=== PATIENT | male | born 1960 | race Caucasian/White ===

== ENCOUNTER 2016-07-28 18:50 | Emergency (ER) | payer BC ==
[2016-07-28 19:23] VITALS: BP 142/65
[2016-07-28] MEDS ORDERED: Ketorolac 30 MG/ML SDV ONE ×2 (19:53→20:01)
[2016-07-28] MEDS ORDERED: Meperidine PF 25 MG/ML Syringe IM ONE (19:55)
--- NOTE | 2016-07-28 21:37 | EDM.PDOC ---
ED HPI HEADACHE COMPLAINT - General Chief Complaint: Headache Stated Complaint: HEADACHE Time Seen by Provider: 07/28/16 19:10 Source of Information: Reports: Patient History Limitations: Reports: No limitations - History of Present Illness INITIAL COMMENTS - FREE TEXT/NARRATIVE: 85-year-old male presents to the emergency room with complaints of headache unilateral right side that occurred about 3:00 this afternoon. He reports his pain is constant and that rates it at a 5/10. Systemic to other headaches he's had in the past. He averages at least 2 headaches a month. He denies any numbness complaints in his arms face or lower chest remedies. He denies any visual changes. He denies any difficulty with speech. He denies any gait disturbance. He took 3 325 mg aspirin without relief. Symptom Onset Date: 07/28/16 Symptom Onset Time: 15:00 Timing/Duration: Reports: hour(s):, constant/continuous Location: Reports: parietal, right Quality: Denies: pounding Severity: Reports: moderate, similar to past headaches Context: Denies: dietary trigger, recent drugs/ETOH, change in medications Treatments [employer]: Reports: Aspirin - Related Data Allergies/ADRs: Allergies Allergy/AdvReac Type Severity Reaction Status Date / Time No Known Drug Allergies Allergy Other Verified 07/28/16 19:23 Home Meds: Home Meds Fluticasone Propionate [Flovent HFA 44 MCG] 1 puff INH BID PRN 01/14/16 [History ] Past Medical History - Past Health History Medical/Surgical History: Denies Medical/Surgical History HEENT History: Reports: Hard of hearing, Impaired vision, Other (see below) Other HEENT History: Right-sided chronic hearing loss secondary to previous otitis media or infection, patient wears glasses Cardiovascular History: Reports: None Respiratory History: Reports: COPD Gastrointestinal History: Reports: Colon polyp, Other (see below) Other Gastrointestinal History: Multiple polypectomies of unknown type as below Genitourinary History: Reports: None Musculoskeletal History: Reports: Arthritis, Back pain, chronic, Fracture, Osteoarthritis, Other (see below) Other Musculoskeletal History: Right ankle fracture in 1989, spina bifida occulta in L5-S1 region Neurological History: Reports: Headaches, chronic, Other (see below) Other Neuro History: Chronic tension headaches which occur about every 3 months with previous negative CT scan of the head Psychiatric History: Reports: None Endocrine/Metabolic History: Reports: None Hematologic History: Reports: None Immunologic History: Reports: None Oncologic (Cancer) History: Reports: None Dermatologic History: Reports: None - Infectious Disease History Infectious Disease History: Reports: None. Denies: C-difficile, Chicken pox, Measles, Meningitis, Mononucleosis, MRSA, Mumps, Pertussis (whooping cough), Rheumatic Fever, Rubella, Scarlet fever, Shingles, TB, VRE - Past Surgical History Head Surgeries/Procedures: Reports: None HEENT Surgical History: Reports: Adenoidectomy, Oral surgery, Tonsillectomy, Other (see below) Other HEENT Surgeries/Procedures: Total teeth extraction, tonsillectomy and adenoidectomy as a child Cardiovascular Surgical History: Reports: None Respiratory Surgical History: Reports: None GI Surgical History: Reports: Appendectomy, Colonoscopy, Polypectomy, Other ( see below) Other GI Surgeries/Procedures: Colonoscopy in January 2016 with polypectomy x5 Male Surgical History: Reports: None Endocrine Surgical History: Reports: None Neurological Surgical History: Reports: None Musculoskeletal Surgical History: Reports: None Oncologic Surgical History: Reports: None Dermatological Surgical History: Reports: None - Past Imaging History Past Imaging History: Reports: CAT scan (CT of the head on 02/08/16, CT of the abdomen and pelvis on 02/16/16) Social & Family History - Family History Family Medical History: Noncontributory - Tobacco Use Smoking Status *Q: Former Smoker Years of Tobacco use: 42 Packs/Tins Daily: 2 Used Tobacco, but Quit: Yes Month Tobacco Last Used: Stop smoking in November 2015 Second Hand Smoke Exposure: No - Caffeine Use Caffeine Use: Reports: Coffee, Soda - Alcohol Use Days Per Week of Alcohol Use: 0 - Recreational Drug Use Recreational Drug Use: No Drug Use in Last 12 Months: No - Living Situation & Occupation Living situation: Reports: (1995 3 children from that relationship, another child from subsequent significant other), alone Occupation: employed (grain elevator) ED ROS GENERAL - Review of Systems Review Of Systems: ROS reveals no pertinent complaints other than HPI. - Physical Exam Exam: See Below Exam Limited By: No limitations General Appearance: alert, WD/WN, mild distress Eye Exam: bilateral eye: EOMI, PERRL Ears: normal external exam, normal canal, hearing grossly normal, normal TMs Nose: normal inspection Throat/Mouth: Normal inspection, Normal lips, Normal oropharynx, Normal voice, No airway compromise Head Exam: atraumatic, normocephalic Neck: normal inspection, supple, non-tender, full range of motion. No: carotid bruit, lymphadenopathy (L), lymphadenopathy (R), tender midline, thyromegaly Respiratory/Chest: no respiratory distress, lungs clear, normal breath sounds, no accessory muscle use, chest non-tender Cardiovascular: normal peripheral pulses, regular rate, rhythm, no edema, no murmur Neuro Exam (Abbreviated): alert, oriented, CN II-XII intact, normal cognition, normal gait, no motor/sensory deficits Course - Vital Signs Last Recorded V/S: Last Vital Signs Temp 97.2 F 07/28/16 19:22 Pulse 68 07/28/16 19:22 Resp 20 07/28/16 19:22 BP 142/65 H 07/28/16 19:22 Pulse Ox 96 07/28/16 19:22 - Orders/Labs/Meds Meds: Medications Discontinued Medications Generic Name Dose Route Start Last Admin Trade Name Chel PRN Reason Stop Dose Admin Ketorolac Tromethamine 30 mg 07/28/16 19:53 Toradol .ROUTE 07/28/16 19:54 .STK-MED ONE Ketorolac Tromethamine Confirm 07/28/16 20:01 07/28/16 20:06 Toradol Administered 07/28/16 20:02 30 mg Dose Administration 30 mg .ROUTE .STK-MED ONE Meperidine HCl 25 mg 07/28/16 19:55 07/28/16 20:32 Demerol IM 07/28/16 19:56 25 mg ONETIME ONE Administration - Re-Assessments/Exams Free Text/Narrative Re-Assessment/Exam: 07/28/16 22:23 Pain upon arrival was a 5/10. Patient reports pain is now one or 2/10. Feels significantly better. Departure - Departure Time of Disposition: 23:00 Disposition: Home, Self-Care 01 Condition: good Clinical Impression: Headache Qualifiers: Headache type: tension-type Headache chronicity pattern: acute headache Intractability: not intractable Qualified Code(s): G44.209 - Tension-type headache, unspecified, not intractable Instructions: Tension Headache Referrals: Idalia Cuellar MD [Primary Care Provider] - Forms: ED Department Discharge Additional Instructions: 1. Rest 2. Tylenol 500-1000mg every 8 hours as needed. 3. Ibuprofen 800 mg every 8 hours as needed. 4. return to the emergency room if he had recurrence of severe in retractable headache pain, intractable vomiting, visual changes, change in speech or drooping of the face or weakness of her extremities or difficulty walking. - Assessment/Plan Assessment:: headache, tension Plan: 1. Rest 2. Tylenol or ibuprofen for headache Q8 hours as needed 3. Return to ER if any neurologic changes such as visual changes, speech changes , difficulty with talking, drooping of the face, weakness of the upper or lower extremities, gait disturbance.
[2016-07-31] MEDS ORDERED: Ketorolac 30 MG/ML SDV IM ONE (10:01)
== END 2016-07-28 22:35 | disposition home or self-care (01) ==
LOC: KA.ED 18:50
DX: G44.209 Tension-type headache, unspecified, not intractable (principal); J44.9 Chronic obstructive pulmonary disease, unspecified; Z87.891 Personal history of nicotine dependence
CPT/HCPCS: 96372; 99283; J1885; J2175

== ENCOUNTER 2016-12-15 05:53 | Emergency (ER) | payer BC, OTHER, SELFPAY ==
[2016-12-15 06:23] VITALS: BP 164/85
[2016-12-15] MEDS ORDERED: Albuterol 0.083% 2.5 MG/3 ML Neb Soln ONE (06:39)
[2016-12-15] MEDS ORDERED: Albuterol 0.083% 2.5 MG/3 ML Neb Soln NEB ONE (06:40)
[2016-12-15] MEDS ORDERED: Albuterol/Ipratropium 3.0-0.5 MG/3 ML Neb Soln NEB ONE (06:42)
--- NOTE | 2016-12-15 07:05 | EDM.PDOC ---
ED HPI GENERAL MEDICAL PROBLEM - General Chief Complaint: Respiratory Problem Stated Complaint: cough Time Seen by Provider: 12/15/16 06:00 Source of Information: Reports: Patient History Limitations: Reports: No Limitations - History of Present Illness INITIAL COMMENTS - FREE TEXT/NARRATIVE: 55 YO WM presents to ER complaining of cough and shortness of breath x 1 day. Pt states he woke tonight coughing with clear mucus production. Pt denies any fever/chills, chest pain, nausea/vomiting. Onset: Today Duration: Day(s): (1) Location: Reports: Chest Severity: Mild Worsens with: Reports: Breathing Associated Symptoms: Reports: Cough, Shortness of Breath - Related Data Allergies Allergy/AdvReac Type Severity Reaction Status Date / Time No Known Drug Allergies Allergy Other Verified 12/15/16 06:24 Home Meds: Home Meds Fluticasone Propionate [Flovent HFA 44 MCG] 1 puff INH BID PRN 01/14/16 [History ] Albuterol Sulfate [Proair Hfa] 8.5 gm IH Q4HR #1 hfa.aer.ad 12/15/16 [Rx] Past Medical History - Past Health History Medical/Surgical History: Denies Medical/Surgical History HEENT History: Reports: Hard of Hearing, Impaired Vision Other HEENT History: Right-sided chronic hearing loss secondary to previous otitis media or infection, patient wears glasses Cardiovascular History: Reports: None Respiratory History: Reports: COPD Gastrointestinal History: Reports: Colon Polyp Other Gastrointestinal History: Multiple polypectomies of unknown type as below Genitourinary History: Reports: None Musculoskeletal History: Reports: Arthritis, Back Pain, Chronic, Fracture, Osteoarthritis, Other (See Below) Other Musculoskeletal History: Right ankle fracture in 1989, spina bifida occulta in L5-S1 region Neurological History: Reports: Headaches, Chronic Other Neuro History: Chronic tension headaches which occur about every 3 months with previous negative CT scan of the head Psychiatric History: Reports: None Endocrine/Metabolic History: Reports: None Hematologic History: Reports: None Immunologic History: Reports: None Oncologic (Cancer) History: Reports: None Dermatologic History: Reports: None - Infectious Disease History Infectious Disease History: Reports: None - Past Surgical History Head Surgeries/Procedures: Reports: None HEENT Surgical History: Reports: Adenoidectomy, Oral Surgery, Tonsillectomy, Other (See Below) Cardiovascular Surgical History: Reports: None Respiratory Surgical History: Reports: None GI Surgical History: Reports: Appendectomy, Colonoscopy, Polypectomy Male Surgical History: Reports: None Endocrine Surgical History: Reports: None Oncologic Surgical History: Reports: None Dermatological Surgical History: Reports: None - Past Imaging History Past Imaging History: Reports: CAT Scan Social & Family History - Family History Family Medical History: Noncontributory - Tobacco Use Smoking Status *Q: Former Smoker Years of Tobacco use: 42 Packs/Tins Daily: 2 Used Tobacco, but Quit: Yes Month Tobacco Last Used: Stop smoking in November 2015 Second Hand Smoke Exposure: No - Caffeine Use Caffeine Use: Reports: Coffee, Soda - Alcohol Use Days Per Week of Alcohol Use: 0 - Recreational Drug Use Recreational Drug Use: No Drug Use in Last 12 Months: No - Living Situation & Occupation Living situation: Reports: , Alone Occupation: Employed ED ROS GENERAL - Review of Systems Review Of Systems: See Below Constitutional: Reports: No Symptoms HEENT: Reports: No Symptoms Respiratory: Reports: Shortness of Breath Cardiovascular: Reports: No Symptoms Endocrine: Reports: No Symptoms GI/Abdominal: Reports: No Symptoms : Reports: No Symptoms Musculoskeletal: Reports: No Symptoms Skin: Reports: No Symptoms Neurological: Reports: No Symptoms Psychiatric: Reports: No Symptoms Hematologic/Lymphatic: Reports: No Symptoms Immunologic: Reports: No Symptoms ED EXAM, GENERAL - Physical Exam Exam: See Below Exam Limited By: No Limitations General Appearance: Alert, WD/WN, No Apparent Distress Ears: Normal External Exam, Normal Canal, Hearing Grossly Normal, Normal TMs Nose: Normal Inspection, Normal Mucosa, No Blood Throat/Mouth: Normal Inspection, Normal Lips, Normal Teeth, Normal Gums, Normal Oropharynx, Normal Voice, No Airway Compromise Head: Atraumatic, Normocephalic Neck: Normal Inspection, Supple, Non-Tender, Full Range of Motion Respiratory/Chest: No Respiratory Distress, Normal Breath Sounds, No Accessory Muscle Use, Chest Non-Tender, Wheezing Cardiovascular: Normal Peripheral Pulses, Regular Rate, Rhythm, No Edema, No Gallop, No JVD, No Murmur, No Rub GI/Abdominal: Normal Bowel Sounds, Soft, Non-Tender, No Organomegaly, No Distention, No Abnormal Bruit, No Mass Back Exam: Normal Inspection, Full Range of Motion, NT Extremities: Normal Inspection, Normal Range of Motion, Non-Tender, Normal Capillary Refill, No Pedal Edema Neurological: Alert, Oriented, CN II-XII Intact, Normal Cognition, Normal Gait, Normal Reflexes, No Motor/Sensory Deficits Psychiatric: Normal Affect, Normal Mood Skin Exam: Warm, Dry, Intact, Normal Color, No Rash Lymphatic: No Adenopathy Course - Vital Signs Last Recorded V/S: Last Vital Signs Temp 35.9 C 12/15/16 06:20 Pulse 68 12/15/16 06:42 Resp 16 12/15/16 06:20 BP 164/85 H 12/15/16 06:20 Pulse Ox 97 12/15/16 06:20 - Orders/Labs/Meds Orders: Active Orders 24 hr Category Date Time Status RT Aerosol Therapy [RC] ASDIRECTED Care 12/15/16 06:42 Active RT Aerosol Therapy [RC] ASDIRECTED Care 12/15/16 06:49 Active Meds: Medications Discontinued Medications Generic Name Dose Route Start Last Admin Trade Name Freq PRN Reason Stop Dose Admin Albuterol Confirm 12/15/16 06:39 12/15/16 06:51 Proventil Neb Soln Administered 12/15/16 06:40 Not Given Dose 2.5 mg .ROUTE .STK-MED ONE Albuterol 2.5 mg 12/15/16 06:40 12/15/16 06:51 Proventil Neb Soln NEB 12/15/16 06:41 2.5 mg ONETIME ONE Administration Departure - Departure Time of Disposition: 07:05 Disposition: Home, Self-Care 01 Condition: Good Clinical Impression: Asthma attack - Discharge Information Prescriptions: Albuterol Sulfate [Proair Hfa] 8.5 gm IH Q4HR #1 hfa.aer.ad Instructions: Asthma, Adult - My Orders Last 24 Hours: My Active Orders 12/15/16 06:42 RT Aerosol Therapy [RC] ASDIRECTED 12/15/16 06:49 RT Aerosol Therapy [RC] ASDIRECTED - Assessment/Plan Last 24 Hours: My Active Orders 12/15/16 06:42 RT Aerosol Therapy [RC] ASDIRECTED 12/15/16 06:49 RT Aerosol Therapy [RC] ASDIRECTED Assessment:: 1. bronchospasm Plan: 1. albuterol MDI Q4 and prn 2. discharge home 3. follow up at clinic for further evaluation and treatment
== END 2016-12-15 07:15 | disposition home or self-care (01) ==
LOC: KA.ED 05:53
DX: J45.909 Unspecified asthma, uncomplicated (principal); M19.90 Unspecified osteoarthritis, unspecified site; Z90.89 Acquired absence of other organs; Z87.891 Personal history of nicotine dependence
CPT/HCPCS: 94640; 99284; J7620

== ENCOUNTER 2017-03-27 09:47 | Emergency (ER) | payer BC, OTHER ==
--- NOTE | 2017-03-27 10:20 | EDM.PDOC ---
ED HPI GENERAL MEDICAL PROBLEM - General Chief Complaint: General Stated Complaint: CHEST PAIN Time Seen by Provider: 03/27/17 10:09 Source of Information: Reports: Patient History Limitations: Reports: No Limitations - History of Present Illness INITIAL COMMENTS - FREE TEXT/NARRATIVE: Patient is a 56-year-old gentleman who presents to the emergency department with a complaint of slurred speech and left upper extremity numbness and tingling. Patient states that he was on break from work and developed difficulty speaking and left upper extremity numbness and tingling. He is brought to emergency department by his employer. At that time. He denied chest pain, headache, blurry vision, shortness of breath, nausea, vomiting, or dizziness. Patient does not usually, nor did he take any anti-inflammatory medicines this morning. Upon presentation, symptoms had completely resolved. However, while in ER he developed difficulty speaking again for approximately 2 minutes, then spontaneously resolved. He denied any headache, chest pain, shortness of breath, fever, or left upper extremity numbness during this episode. Concerns discussed with patient's brother, who states that patient has had several several similar episodes over the last 2 weeks. At times he slurs his words, becomes confused, and then this resolves spontaneously. States that this typically lasts about 5 minutes and has been trying to get patient to be evaluated by medical provider. However, patient had refused. When confronted with this information, patient did concur and said this has been going on for a couple weeks. Onset: Today Onset Date: 03/27/17 Onset Time: 09:30 Duration: Minutes: Severity: Mild Improves with: Reports: None, Other (Spontaneously) Worsens with: Reports: None Associated Symptoms: Reports: Other (Left arm numbness/tingling) - Related Data Allergies Allergy/AdvReac Type Severity Reaction Status Date / Time No Known Drug Allergies Allergy Other Verified 03/27/17 10:27 Home Meds: Home Meds Albuterol [Ventolin HFA] 2 puff INH Q4H PRN 03/27/17 [History] Past Medical History - Past Health History Medical/Surgical History: Denies Medical/Surgical History HEENT History: Reports: Hard of Hearing, Impaired Vision Other HEENT History: Right-sided chronic hearing loss secondary to previous otitis media or infection, patient wears glasses Cardiovascular History: Reports: None Respiratory History: Reports: COPD Gastrointestinal History: Reports: Colon Polyp Other Gastrointestinal History: Multiple polypectomies of unknown type as below Genitourinary History: Reports: None Musculoskeletal History: Reports: Arthritis, Back Pain, Chronic, Fracture, Osteoarthritis, Other (See Below) Other Musculoskeletal History: Right ankle fracture in 1989, spina bifida occulta in L5-S1 region Neurological History: Reports: Headaches, Chronic Other Neuro History: Chronic tension headaches which occur about every 3 months with previous negative CT scan of the head Psychiatric History: Reports: None Endocrine/Metabolic History: Reports: None Hematologic History: Reports: None Immunologic History: Reports: None Oncologic (Cancer) History: Reports: None Dermatologic History: Reports: None - Infectious Disease History Infectious Disease History: Reports: None - Past Surgical History Head Surgeries/Procedures: Reports: None HEENT Surgical History: Reports: Adenoidectomy, Oral Surgery, Tonsillectomy, Other (See Below) Cardiovascular Surgical History: Reports: None Respiratory Surgical History: Reports: None GI Surgical History: Reports: Appendectomy, Colonoscopy, Polypectomy Male Surgical History: Reports: None Endocrine Surgical History: Reports: None Oncologic Surgical History: Reports: None Dermatological Surgical History: Reports: None - Past Imaging History Past Imaging History: Reports: CAT Scan Social & Family History - Family History Family Medical History: Noncontributory - Tobacco Use Smoking Status *Q: Former Smoker Years of Tobacco use: 42 Packs/Tins Daily: 2 Used Tobacco, but Quit: Yes Month Tobacco Last Used: Stop smoking in November 2015 Second Hand Smoke Exposure: No - Caffeine Use Caffeine Use: Reports: Coffee, Soda - Alcohol Use Days Per Week of Alcohol Use: 0 - Recreational Drug Use Recreational Drug Use: No Drug Use in Last 12 Months: No - Living Situation & Occupation Living situation: Reports: , Alone Occupation: Employed ED ROS GENERAL - Review of Systems Review Of Systems: ROS reveals no pertinent complaints other than HPI. Constitutional: Reports: No Symptoms HEENT: Reports: No Symptoms Respiratory: Reports: No Symptoms Cardiovascular: Reports: No Symptoms Endocrine: Reports: No Symptoms GI/Abdominal: Reports: No Symptoms : Reports: No Symptoms Musculoskeletal: Reports: Arm Pain Skin: Reports: No Symptoms Neurological: Reports: Confusion, Numbness, Trouble Speaking, Change in Speech Psychiatric: Reports: No Symptoms Hematologic/Lymphatic: Reports: No Symptoms Immunologic: Reports: No Symptoms ED EXAM, GENERAL - Physical Exam Exam: See Below Exam Limited By: No Limitations General Appearance: Alert, WD/WN, No Apparent Distress Eye Exam: Bilateral Eye: Normal Inspection Ears: Normal External Exam, Normal Canal, Normal TMs Nose: Normal Inspection, Normal Mucosa, No Blood Throat/Mouth: Normal Inspection, Normal Oropharynx, No Airway Compromise Head: Atraumatic, Normocephalic Neck: Normal Inspection, Supple, Non-Tender Respiratory/Chest: No Respiratory Distress, Lungs Clear, Normal Breath Sounds, No Accessory Muscle Use, Chest Non-Tender Cardiovascular: Regular Rate, Rhythm, No Murmur GI/Abdominal: Normal Bowel Sounds, Soft, Non-Tender, No Organomegaly, No Distention, No Abnormal Bruit, No Mass Back Exam: Normal Inspection. No: CVA Tenderness (L), CVA Tenderness (R) Extremities: Normal Inspection, No Pedal Edema Neurological: Alert, Oriented, CN II-XII Intact, Normal Cognition, No Motor/ Sensory Deficits Psychiatric: Normal Affect, Normal Mood Skin Exam: Warm, Dry, Intact, Normal Color, No Rash Lymphatic: No Adenopathy EKG INTERPRETATION EKG Date: 03/27/17 Time: 10:50 Rhythm: NSR Rate (Beats/Min): 69 [place]: Normal P-Wave: Present QRS: Normal ST-T: Normal QT: Normal Comparison: NA - No Prior EKG Course - Vital Signs Last Recorded V/S: Last Vital Signs Temp 98.6 F 03/27/17 10:10 Pulse 75 03/27/17 10:15 Resp 20 03/27/17 10:10 BP 140/64 03/27/17 10:15 Pulse Ox 98 03/27/17 10:10 - Orders/Labs/Meds Orders: Active Orders 24 hr Category Date Time Status EKG Documentation Completion [RC] ASDIRECTED Care 03/27/17 09:52 Active Chest 1V Frontal [CR] Stat Exams 03/27/17 09:52 Ordered Head wo Cont [CT] Stat Exams 03/27/17 10:10 Ordered EKG 12 Lead [EK] Routine Ther 03/27/17 09:51 Ordered Labs: Laboratory Tests 03/27/17 03/27/17 Range/Units 09:50 09:50 WBC 7.3 (5.0-10.0) 10^3/uL RBC 5.26 (4.50-6.00) 10^6/uL Hgb 15.8 (13.0-17.0) g/dL Hct 48.1 (40.0-52.0) % MCV 91.5 (82.0-92.0) fL MCH 30.1 (27.0-31.0) pg MCHC 32.9 (32.0-36.0) g/dL RDW 11.8 (11.5-14.5) % Plt Count 277 (150-300) 10^3/uL MPV 7.8 (7.4-10.4) fL Neut % (Auto) 65.1 (50.0-70.0) % Lymph % (Auto) 27.5 (20.0-40.0) % [place] % (Auto) 5.6 (2.0-8.0) % Eos % (Auto) 1.8 (1.0-3.0) % Baso % (Auto) 0.0 (0.0-1.0) % Neut # (Auto) 4.8 (2.5-7.0) 10^3/uL Lymph # (Auto) 2.0 (1.0-4.0) 10^3/uL [place] # (Auto) 0.4 (0.1-0.8) 10^3/uL Eos # (Auto) 0.1 (0.1-0.3) 10^3/uL Baso # (Auto) 0.0 (0.0-0.1) 10^3/uL Sodium 140 (136-145) mmol/L Potassium 4.1 (3.3-5.3) mmol/L Chloride 103 (98-115) mmol/L Carbon Dioxide 28.9 (21.0-32.0) mmol/L BUN 15 (6-25) mg/dL Creatinine 0.95 (0.51-1.17) mg/dL Est Cr Clr Drug Dosing TNP Estimated GFR (MDRD) > 60 mL/min Glucose 122 H (70-110) mg/dL Calcium 8.4 L (8.7-10.3) mg/dL Total Bilirubin 0.5 (0.2-1.0) mg/dL AST 17 (15-37) U/L ALT 11 L (12-78) U/L Alkaline Phosphatase 157 H (46-116) IU/L Troponin I < 0.04 (0.00-0.070) ng/mL Total Protein 7.7 (6.4-8.2) g/dL Albumin 4.11 (3.00-4.80) g/dL - Radiology Interpretation Free Text/Narrative:: Chest x-ray negative for acute process. CT Results Date: 03/27/17 - Re-Assessments/Exams Free Text/Narrative Re-Assessment/Exam: 03/27/17 11:26 Patient afebrile, nontoxic appearing, vital signs stable, asymptomatic. Discussed case in depth with Dr. Major, she feels it would be propria to discharge from ER today, and have patient follow-up at clinic for further studies. Departure - Departure Time of Disposition: 11:27 Disposition: Home, Self-Care 01 Condition: Good Clinical Impression: Aphasia Transient ischemic attack Qualifiers: Transient cerebral ischemia type: unspecified Qualified Code(s): G45.9 - Transient cerebral ischemic attack, unspecified - Discharge Information Instructions: Aphasia, Transient Ischemic Attack, [id number] Referrals: PCP,Unknown [Ordering Only Provider] - Forms: ED Department Discharge Additional Instructions: Follow-up with Dr. Major in the next 1-2 days. Return to emergency department sooner if symptoms continue or worsen. - My Orders Last 24 Hours: My Active Orders 03/27/17 09:51 EKG 12 Lead [EK] Routine 03/27/17 09:52 EKG Documentation Completion [RC] ASDIRECTED Chest 1V Frontal [CR] Stat 03/27/17 10:10 Head wo Cont [CT] Stat - Assessment/Plan Last 24 Hours: My Active Orders 03/27/17 09:51 EKG 12 Lead [EK] Routine 03/27/17 09:52 EKG Documentation Completion [RC] ASDIRECTED Chest 1V Frontal [CR] Stat 03/27/17 10:10 Head wo Cont [CT] Stat Assessment:: Aphasia Plan: Follow-up with Dr. Major
[2017-03-27 10:23] LABS: CHLORIDE,CL 103 mmol/L (98-115); SODIUM,NA 140 mmol/L (136-145)
[2017-03-27 11:33] VITALS: BP 148/67
== END 2017-03-27 11:40 | disposition home or self-care (01) ==
LOC: KA.ED 09:47
DX: G45.9 Transient cerebral ischemic attack, unspecified (principal); J44.9 Chronic obstructive pulmonary disease, unspecified; Z87.891 Personal history of nicotine dependence
CPT/HCPCS: 36415; 70450; 71045; 80053; 84484; 85025; 93005; 99285

== ENCOUNTER 2017-03-28 14:05 | Emergency (ER) | payer BC, OTHER ==
[2017-03-28 14:25] VITALS: BP 151/76
--- NOTE | 2017-03-28 14:39 | EDM.PDOC ---
ED HPI GENERAL MEDICAL PROBLEM - General Chief Complaint: General Stated Complaint: SLURRED SPEECH Time Seen by Provider: 03/28/17 14:14 Source of Information: Reports: Patient, Family (brother) History Limitations: Reports: No Limitations - History of Present Illness INITIAL COMMENTS - FREE TEXT/NARRATIVE: PATIENT IS A 56-YEAR-OLD GENTLEMAN WHO PRESENT TO THE EMERGENCY DEPARTMENT THIS AFTERNOON WITH HIS BROTHER FOR A CONTINUED COMPLAINT OF SLURRED SPEECH AND CONFUSION WHICH IS BEEN GOING ON FOR SEVERAL WEEKS. PATIENT PRESENTED TO THE EMERGENCY DEPARTMENT YESTERDAY WITH SAME COMPLAINT. AT THAT TIME ALL LAB WORK , EKG, CHEST X-RAY AND CT HEAD WERE ALL NEGATIVE. HIS PRIMARY CARE PHYSICIAN WAS CONTACTED AND RECOMMENDED FOLLOW-UP IN THE OFFICE FOR MRI AND FURTHER EVALUATION. BROTHER STATES THAT HE FEELS SYMPTOMS ARE WORSENING AND BECOMING MORE FREQUENT, SO THEY DECIDED TO PRESENT TO THE ER. PATIENT DENIES HEADACHE, CHEST PAIN, SHORTNESS OF BREATH, NAUSEA, VOMITING, DIARRHEA, ANY TRAUMA, BLURRY VISION, OR DIZZINESS. PATIENT STATES THAT HE HAS DIFFICULTY GETTING WORDS OUT, AND FEELS VERY CONFUSED. Onset: Gradual Duration: Week(s): Quality: Reports: Other (NO HEADACHE, NO CHEST PAIN) Severity: Mild Improves with: Reports: None Worsens with: Reports: None Associated Symptoms: Reports: No Other Symptoms - Related Data Allergies Allergy/AdvReac Type Severity Reaction Status Date / Time No Known Drug Allergies Allergy Other Verified 03/28/17 14:15 Home Meds: Home Meds Albuterol [Ventolin HFA] 2 puff INH Q4H PRN 03/27/17 [History] Past Medical History - Past Health History Medical/Surgical History: Denies Medical/Surgical History HEENT History: Reports: Hard of Hearing, Impaired Vision Other HEENT History: Right-sided chronic hearing loss secondary to previous otitis media or infection, patient wears glasses Cardiovascular History: Reports: None Respiratory History: Reports: COPD Gastrointestinal History: Reports: Colon Polyp Other Gastrointestinal History: Multiple polypectomies of unknown type as below Genitourinary History: Reports: None Musculoskeletal History: Reports: Arthritis, Back Pain, Chronic, Fracture, Osteoarthritis, Other (See Below) Other Musculoskeletal History: Right ankle fracture in 1989, spina bifida occulta in L5-S1 region Neurological History: Reports: Headaches, Chronic Other Neuro History: Chronic tension headaches which occur about every [address] months with previous negative CT scan of the head Psychiatric History: Reports: None Endocrine/Metabolic History: Reports: None Hematologic History: Reports: None Immunologic History: Reports: None Oncologic (Cancer) History: Reports: None Dermatologic History: Reports: None - Infectious Disease History Infectious Disease History: Reports: None Other Infectious Disease History: does not think that he did. - Past Surgical History Head Surgeries/Procedures: Reports: None HEENT Surgical History: Reports: Adenoidectomy, Oral Surgery, Tonsillectomy, Other (See Below) Cardiovascular Surgical History: Reports: None Respiratory Surgical History: Reports: None GI Surgical History: Reports: Appendectomy, Colonoscopy, Polypectomy Male Surgical History: Reports: None Endocrine Surgical History: Reports: None Oncologic Surgical History: Reports: None Dermatological Surgical History: Reports: None - Past Imaging History Past Imaging History: Reports: CAT Scan Social & Family History - Family History Family Medical History: Noncontributory Cardiac: Reports: Bypass Endocrine/Metabolic: Reports: IDDM - Tobacco Use Smoking Status *Q: Former Smoker Years of Tobacco use: 42 Packs/Tins Daily: 2 Used Tobacco, but Quit: Yes Month Tobacco Last Used: 2016 Second Hand Smoke Exposure: No - Caffeine Use Caffeine Use: Reports: Coffee, Soda - Alcohol Use Days Per Week of Alcohol Use: 0 - Recreational Drug Use Recreational Drug Use: No Drug Use in Last 12 Months: No - Living Situation & Occupation Living situation: Reports: , Alone Occupation: Employed ED ROS GENERAL - Review of Systems Review Of Systems: ROS reveals no pertinent complaints other than HPI. Constitutional: Reports: No Symptoms HEENT: Reports: No Symptoms Respiratory: Reports: No Symptoms Cardiovascular: Reports: No Symptoms Endocrine: Reports: No Symptoms GI/Abdominal: Reports: No Symptoms : Reports: No Symptoms Musculoskeletal: Reports: No Symptoms Skin: Reports: No Symptoms Neurological: Reports: Confusion, Change in Speech Psychiatric: Reports: No Symptoms Hematologic/Lymphatic: Reports: No Symptoms Immunologic: Reports: No Symptoms ED EXAM, GENERAL - Physical Exam Exam: See Below Exam Limited By: No Limitations General Appearance: Alert, WD/WN, No Apparent Distress Ears: Normal Canal, Normal TMs Nose: Normal Inspection, No Blood Throat/Mouth: Normal Inspection, Normal Oropharynx, No Airway Compromise Head: Atraumatic, Normocephalic Neck: Normal Inspection. No: Carotid Bruit, Lymphadenopathy (L), Lymphadenopathy (R) Respiratory/Chest: No Respiratory Distress, Lungs Clear, Normal Breath Sounds GI/Abdominal: Normal Bowel Sounds, Soft, Non-Tender Back Exam: Normal Inspection Extremities: Normal Inspection, No Pedal Edema Neurological: Alert, Oriented, CN II-XII Intact, Other (INTERMITTENT CONFUSION WITH PERIODS OF SLURRED SPEECH) Psychiatric: Normal Affect, Anxious Skin Exam: Warm, Dry, Intact, Normal Color, No Rash Lymphatic: No Adenopathy Course - Vital Signs Last Recorded V/S: Last Vital Signs Temp 98.2 F 03/28/17 14:16 Pulse 98 03/28/17 14:16 Resp 16 03/28/17 14:16 BP 151/76 H 03/28/17 14:16 Pulse Ox 97 03/28/17 14:16 - Re-Assessments/Exams Free Text/Narrative Re-Assessment/Exam: 03/28/17 14:47 PATIENT AFEBRILE, NONTOXIC APPEARING, VITAL SIGNS STABLE. INTERMITTENT PERIODS OF CONFUSION. CASE DISCUSSED WITH ONE CALL, DR. KIRK NEUROLOGY AND DR TORRES EMERGENCY DEPARTMENT ACCEPTED TRANSFER. PATIENT WILL BE TRANSFERRED VIA EMS AMBULANCE. Departure - Departure Time of Disposition: 14:49 Disposition: DC/Tfer to Acute Hospital 02 Condition: Fair Clinical Impression: Dysarthria Altered mental status Qualifiers: Altered mental status type: unspecified Qualified Code(s): R41.82 - Altered mental status, unspecified - Discharge Information Referrals: Idalia Cuellar MD [Primary Care Provider] - - Assessment/Plan Assessment:: DYSARTHRIA, CONFUSION Plan: PATIENT TRANSFERRED TO
[2017-03-28] MEDS ORDERED: Sodium Chloride 0.9% 5 ML Syringe FLUSH PRN (14:51)
== END 2017-03-28 15:05 ==
LOC: KA.ED 14:05
DX: R41.82 Altered mental status, unspecified (principal); R47.1 Dysarthria and anarthria; Z87.891 Personal history of nicotine dependence
CPT/HCPCS: 99285

== ENCOUNTER 2017-06-09 12:31 | Emergency (ER) | payer BC, MEDICAID ==
[2017-06-09 12:38] VITALS: BP 181/74
--- NOTE | 2017-06-09 14:02 | EDM.PDOC ---
ED HPI GENERAL MEDICAL PROBLEM - General Chief Complaint: Neurological Problem Stated Complaint: POSSIBLE STROKE??? Time Seen by Provider: 06/09/17 12:45 Source of Information: Reports: Patient History Limitations: Reports: No Limitations - History of Present Illness INITIAL COMMENTS - FREE TEXT/NARRATIVE: 56-year-old male presents emergency room with concerns of possible stroke. Patient states that he was driving his vehicle and began drooling on the left side of his face.. Reports symptoms only lasted for about 4 minutes. He had a little bit of tingling in his left hand. He denied any significant weakness denied change in vision, denies difficulty with speech or word finding. He denied any weakness in his upper or lower extremities. He denies any facial drooping. He denies chest pain or shortness of breath. He denies any headache. Past medical history significant mild COPD, tobacco use and recent history of CVA. He was seen in the emergency room in March and transferred per [facility] in [place] for complaints of dysphagia. He had MRI performed and showed areas of suggestive and embolic phenomenon in the left anterior parietal lobe. CTA head showed a vague low density area most likely representing evolving stroke in the left posterior temporal lobe. Workup including CT head and neck, TTE, TTE lower extremity ultrasound and hypercoagulable labs, telemetry, abdominal CT , chest CT LP with CSF studies did not demonstrate a cause for the patient's stroke. Patient had an echo that did show up PFO. He had an implantable loop recorderinq for long-term monitoring of atrial fibrillation was placed prior to his discharge. He was started on Lipitor and aspirin for stroke prophylaxis per neurology patient was also seen by psychology as he had a lot of anxiety during his admission. He is found medially criteria for adjustment disorder with mixed anxiety and depressed mood. Since his discharge she's been feeling well he has had follow-up with his primary care in as well as a stroke in her last clinic was recommended follow- up in 6 months with neurology. Onset: Today, Sudden Onset Date: 06/09/17 Onset Time: 12:15 Duration: Minutes: (3-4 minutes), Resolved Prior to Arrival Location: Reports: Face, Upper Extremity, Left (tingling in fingers) Severity: Mild Improves with: Reports: None Worsens with: Reports: None Associated Symptoms: Denies: Confusion, Chest Pain, Cough, Diaphoresis, Fever/ Chills, Headaches, Nausea/Vomiting, Seizure, Shortness of Breath, Syncope, Weakness - Related Data Allergies Allergy/AdvReac Type Severity Reaction Status Date / Time No Known Drug Allergies Allergy Other Verified 06/09/17 12:39 Home Meds: Home Meds Albuterol [Ventolin HFA] 2 puff INH Q4H PRN 03/27/17 [History] Aspirin [Rob Chewable Aspirin] 81 mg PO DAILY 06/09/17 [History] atorvaSTATin [Lipitor] 40 mg PO DAILY 06/09/17 [History] Past Medical History - Past Health History Medical/Surgical History: Denies Medical/Surgical History HEENT History: Reports: Hard of Hearing, Impaired Vision Other HEENT History: Right-sided chronic hearing loss secondary to previous otitis media or infection, patient wears glasses Cardiovascular History: Reports: High Cholesterol, Other (See Below) Other Cardiovascular History: Patient states he has a hole in his heart that needs to be repaired. Respiratory History: Reports: COPD Gastrointestinal History: Reports: Colon Polyp Other Gastrointestinal History: Multiple polypectomies of unknown type as below Genitourinary History: Reports: None Musculoskeletal History: Reports: Arthritis, Back Pain, Chronic, Fracture, Osteoarthritis, Other (See Below) Other Musculoskeletal History: Right ankle fracture in 1989, spina bifida occulta in L5-S1 region Neurological History: Reports: CVA, Headaches, Chronic Other Neuro History: Chronic tension headaches which occur about every 3 months with previous negative CT scan of the head Psychiatric History: Reports: None Endocrine/Metabolic History: Reports: None Hematologic History: Reports: None Immunologic History: Reports: None Oncologic (Cancer) History: Reports: None Dermatologic History: Reports: None - Infectious Disease History Infectious Disease History: Reports: None Other Infectious Disease History: does not think that he did. - Past Surgical History Head Surgeries/Procedures: Reports: None HEENT Surgical History: Reports: Adenoidectomy, Oral Surgery, Tonsillectomy, Other (See Below) Cardiovascular Surgical History: Reports: None Respiratory Surgical History: Reports: None GI Surgical History: Reports: Appendectomy, Colonoscopy, Polypectomy Male Surgical History: Reports: None Endocrine Surgical History: Reports: None Neurological Surgical History: Reports: None Oncologic Surgical History: Reports: None Dermatological Surgical History: Reports: None - Past Imaging History Past Imaging History: Reports: CAT Scan Social & Family History - Family History Family Medical History: Noncontributory Cardiac: Reports: Bypass Endocrine/Metabolic: Reports: IDDM - Tobacco Use Smoking Status *Q: Former Smoker Years of Tobacco use: 42 Packs/Tins Daily: 2 Used Tobacco, but Quit: Yes Month/Year Tobacco Last Used: 2016 Second Hand Smoke Exposure: No - Caffeine Use Caffeine Use: Reports: Coffee, Soda - Alcohol Use Days Per Week of Alcohol Use: 0 - Recreational Drug Use Recreational Drug Use: No Drug Use in Last 12 Months: No - Living Situation & Occupation Living situation: Reports: , Alone Occupation: Employed ED ROS GENERAL - Review of Systems Review Of Systems: See Below Constitutional: Denies: Fever, Chills, Weakness, Diaphoresis HEENT: Reports: Glasses, Other (drooling). Denies: Dental Pain, Eye Discharge, Throat Swelling, Vertigo, Vision Change Respiratory: Denies: Shortness of Breath, Cough Cardiovascular: Reports: Other (PFO). Denies: Chest Pain, Blood Pressure Problem, Lightheadedness, Palpitations, Syncope Endocrine: Reports: No Symptoms GI/Abdominal: Denies: Abdominal Pain : Reports: No Symptoms Musculoskeletal: Reports: No Symptoms Skin: Denies: Cyanosis, Diaphoresis, Pruritis, Rash Neurological: Reports: Tingling (left fingers resolved). Denies: Confusion, Dizziness, Headache, Numbness, Paresthesia, Syncope, Tremors, Trouble Speaking, Difficulty Walking, Weakness, Change in Speech, Gait Disturbance Psychiatric: Reports: Anxiety Hematologic/Lymphatic: Reports: No Symptoms Immunologic: Reports: No Symptoms ED EXAM, NEURO - Physical Exam Exam: See Below Exam Limited By: No Limitations General Appearance: Alert, WD/WN, No Apparent Distress (he was willing to bring me), Anxious Eye Exam: Bilateral Eye: EOMI, PERRL Ears: Hearing Grossly Normal Nose: Normal Inspection Throat/Mouth: Normal Inspection, Normal Lips, Normal Gums, Normal Oropharynx, Normal Voice, No Airway Compromise. No: Normal Teeth (teeth been extracted, patient does not wear dentures) Head Exam: Atraumatic, Normocephalic Neck: Normal Inspection, Supple, Non-Tender, Full Range of Motion. No: Carotid Bruit, Lymphadenopathy (L), Lymphadenopathy (R), Thyromegaly Respiratory/Chest: No Respiratory Distress, Lungs Clear Cardiovascular: Regular Rate, Rhythm, No JVD, No Murmur GI/Abdominal: Soft, Non-Tender, No Organomegaly, No Abnormal Bruit, No Mass, Other (mildly distended abdomen) Neurological: Alert, Normal Mood/Affect, Normal Dorsiflexion, CN II-XII Intact, Normal Plantar Flexion, Normal Gait, Normal Reflexes, No Motor/Sensory Deficits , Oriented x 3, Other (mildly positive Bimal's bilaterally, NIH stroke scale shows total score 1 with language 1/3) DTR: 1+: Bicep (R), Bicep (L), Tricep (R), Tricep (L), Patella (R), Patella (L) , Achilles (R), Achilles (L) Back Exam: Normal Inspection, Full Range of Motion Extremities: Normal Inspection, Normal Range of Motion, Non-Tender, No Pedal Edema, Normal Capillary Refill Psychiatric: Normal Affect, Anxious Skin Exam: Warm, Dry, Intact, Normal Color. No: Diaphoretic EKG INTERPRETATION EKG Date: 06/09/17 Time: 14:20 Rhythm: NSR Rate (Beats/Min): 57 [place]: Normal P-Wave: Present QRS: Normal ST-T: Normal QT: Normal Comparison: NA - No Prior EKG EKG Interpretation Comments: Sinus bradycardia Course - Vital Signs Last Recorded V/S: Last Vital Signs Temp 98.7 F 06/09/17 12:36 Pulse 75 06/09/17 12:36 Resp 19 06/09/17 12:36 BP 181/74 H 06/09/17 12:36 Pulse Ox 95 06/09/17 12:36 - Orders/Labs/Meds Orders: Active Orders 24 hr Category Date Time Status EKG Documentation Completion [RC] ASDIRECTED Care 06/09/17 14:15 Ordered PTT,PARTIAL THROMBOPLSTIN TIME [COAG] Stat Lab 06/09/17 14:13 Ordered EKG 12 Lead [EK] Routine Ther 06/09/17 14:13 Ordered Labs: Laboratory Tests 06/09/17 06/09/17 Range/Units 14:25 14:25 WBC 6.6 (5.0-10.0) 10^3/uL RBC 5.31 (4.50-6.00) 10^6/uL Hgb 16.0 (13.0-17.0) g/dL Hct 49.0 (40.0-52.0) % MCV 92.2 H (82.0-92.0) fL MCH 30.1 (27.0-31.0) pg MCHC 32.7 (32.0-36.0) g/dL RDW 12.1 (11.5-14.5) % Plt Count 261 (150-300) 10^3/uL MPV 7.3 L (7.4-10.4) fL Neut % (Auto) 65.6 (50.0-70.0) % Lymph % (Auto) 28.0 (20.0-40.0) % [place] % (Auto) 4.9 (2.0-8.0) % Eos % (Auto) 1.5 (1.0-3.0) % Baso % (Auto) 0.0 (0.0-1.0) % Neut # (Auto) 4.4 (2.5-7.0) 10^3/uL Lymph # (Auto) 1.8 (1.0-4.0) 10^3/uL [place] # (Auto) 0.3 (0.1-0.8) 10^3/uL Eos # (Auto) 0.1 (0.1-0.3) 10^3/uL Baso # (Auto) 0.0 (0.0-0.1) 10^3/uL Sodium 144 (136-145) mmol/L Potassium 4.5 (3.3-5.3) mmol/L Chloride 105 (98-115) mmol/L Carbon Dioxide 33.1 H (21.0-32.0) mmol/L BUN 11 (6-25) mg/dL Creatinine 1.01 (0.51-1.17) mg/dL Est Cr Clr Drug Dosing 64.16 mL/min Estimated GFR (MDRD) > 60 mL/min Glucose 113 H (70-110) mg/dL Calcium 8.7 (8.7-10.3) mg/dL - Re-Assessments/Exams Free Text/Narrative Re-Assessment/Exam: 06/09/17 14:27 Patient has not had any changes in neurologic deficit or findings on arrival and repeated currently are normal. He feels less anxious. His blood pressure has improved upon his initial blood pressure reading. Departure - Departure Time of Disposition: 14:54 Disposition: Home, Self-Care 01 Condition: Good Clinical Impression: CVA, old, aphasia, Drooling - Discharge Information Instructions: Aphasia, Transient Ischemic Attack, [id number] Referrals: Idalia Cuellar MD [Primary Care Provider] - Forms: ED Department Discharge Additional Instructions: 1. Rest. Avoid vigorous activity throughout the rest of the weekend. 2. Follow-up with your primary care next week for recheck. 3. Return to the emergency room if any of the following symptoms occur: Change in speech, difficulty with word finding, slurred speech, weakness of the upper and/or lower extremities, gait disturbance, balance problems, severe headache, chest pain, nausea or vomiting. 4. Patient should continue his regular medications which include daily baby aspirin. - Problem List Review Problem List Initiated/Reviewed/Updated: Yes - My Orders Last 24 Hours: My Active Orders 06/09/17 14:13 PTT,PARTIAL THROMBOPLSTIN TIME [COAG] Stat EKG 12 Lead [EK] Routine 06/09/17 14:15 EKG Documentation Completion [RC] ASDIRECTED - Assessment/Plan Last 24 Hours: My Active Orders 06/09/17 14:13 PTT,PARTIAL THROMBOPLSTIN TIME [COAG] Stat EKG 12 Lead [EK] Routine 06/09/17 14:15 EKG Documentation Completion [RC] ASDIRECTED Assessment:: Drooling resolved. 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 Rest. Avoid vigorous activity throughout the rest of the weekend. 2. Follow-up with your primary care next week for recheck. 3. Return to the emergency room if any of the following symptoms occur: Change in speech, difficulty with word finding, slurred speech, weakness of the upper and/or lower extremities, gait disturbance, balance problems, severe headache, chest pain, nausea or vomiting. 4. Patient should continue his regular medications which include daily baby aspirin.
[2017-06-09 14:49] LABS: CHLORIDE,CL 105 mmol/L (98-115); SODIUM,NA 144 mmol/L (136-145)
== END 2017-06-09 15:00 | disposition home or self-care (01) ==
LOC: KA.ED 12:31
DX: R47.01 Aphasia (principal); J44.9 Chronic obstructive pulmonary disease, unspecified; E78.00 Pure hypercholesterolemia, unspecified; M19.90 Unspecified osteoarthritis, unspecified site; Z86.73 Personal history of transient ischemic attack (TIA), and cerebral infarction without residual deficits; Z87.891 Personal history of nicotine dependence; Z79.82 Long term (current) use of aspirin; Z79.899 Other long term (current) drug therapy
CPT/HCPCS: 36415; 80048; 85025; 85730; 99285

== ENCOUNTER 2017-06-18 16:48 | Emergency (ER) | payer MEDICAID ==
[2017-06-18 16:58] VITALS: BP 149/64
[2017-06-18] MEDS ORDERED: Ketorolac 60 MG/2 ML SDV IM ONE (17:29)
--- NOTE | 2017-06-18 17:36 | EDM.PDOC ---
ED HPI GENERAL MEDICAL PROBLEM - General Chief Complaint: Headache Stated Complaint: HEADACHE Time Seen by Provider: 06/18/17 17:10 Source of Information: Reports: Patient History Limitations: Reports: No Limitations - History of Present Illness INITIAL COMMENTS - FREE TEXT/NARRATIVE: 56 YO WM presents to ER complaining of pain to back of his head x 1 day. Pt reports he has history of tension headaches and this pain is similar. Pt denies taking anything for pain. Pt denies head injury, no nausea/vomiting, no fever/ chills. Pt reports taking his ASA 81mg and Avasorstatin as directed. Pt alert and oriented x 4 without any neurological deficits. Onset: Today Duration: Day(s): (1) Location: Reports: Head Quality: Reports: Ache Severity: Mild Improves with: Reports: None Worsens with: Reports: None Associated Symptoms: Reports: No Other Symptoms Posterior Headache Pain Score (Numeric/FACES): 4 - Related Data Allergies Allergy/AdvReac Type Severity Reaction Status Date / Time No Known Drug Allergies Allergy Other Verified 06/18/17 16:58 Home Meds: Home Meds Albuterol [Ventolin HFA] 2 puff INH Q4H PRN 03/27/17 [History] Aspirin [Rob Chewable Aspirin] 81 mg PO DAILY 06/09/17 [History] atorvaSTATin [Lipitor] 40 mg PO DAILY 06/09/17 [History] Past Medical History - Past Health History Medical/Surgical History: Denies Medical/Surgical History HEENT History: Reports: Hard of Hearing, Impaired Vision Other HEENT History: Right-sided chronic hearing loss secondary to previous otitis media or infection, patient wears glasses Cardiovascular History: Reports: High Cholesterol, Other (See Below) Other Cardiovascular History: Patient states he has a hole in his heart that needs to be repaired. Respiratory History: Reports: COPD Gastrointestinal History: Reports: Colon Polyp Other Gastrointestinal History: Multiple polypectomies of unknown type as below Genitourinary History: Reports: None Musculoskeletal History: Reports: Arthritis, Back Pain, Chronic, Fracture, Osteoarthritis, Other (See Below) Other Musculoskeletal History: Right ankle fracture in 1989, spina bifida occulta in L5-S1 region Neurological History: Reports: CVA, Headaches, Chronic Other Neuro History: Chronic tension headaches which occur about every 3 months with previous negative CT scan of the head Psychiatric History: Reports: None Endocrine/Metabolic History: Reports: None Hematologic History: Reports: None Immunologic History: Reports: None Oncologic (Cancer) History: Reports: None Dermatologic History: Reports: None - Infectious Disease History Infectious Disease History: Reports: None Other Infectious Disease History: does not think that he did. - Past Surgical History Head Surgeries/Procedures: Reports: None HEENT Surgical History: Reports: Adenoidectomy, Oral Surgery, Tonsillectomy, Other (See Below) Cardiovascular Surgical History: Reports: None Respiratory Surgical History: Reports: None GI Surgical History: Reports: Appendectomy, Colonoscopy, Polypectomy Male Surgical History: Reports: None Endocrine Surgical History: Reports: None Neurological Surgical History: Reports: None Oncologic Surgical History: Reports: None Dermatological Surgical History: Reports: None - Past Imaging History Past Imaging History: Reports: CAT Scan Social & Family History - Family History Family Medical History: Noncontributory Cardiac: Reports: Bypass Endocrine/Metabolic: Reports: IDDM - Tobacco Use Smoking Status *Q: Former Smoker Years of Tobacco use: 42 Packs/Tins Daily: 2 Used Tobacco, but Quit: Yes Month/Year Tobacco Last Used: 2016 Second Hand Smoke Exposure: No - Caffeine Use Caffeine Use: Reports: Coffee, Soda - Alcohol Use Days Per Week of Alcohol Use: 0 - Recreational Drug Use Recreational Drug Use: No Drug Use in Last 12 Months: No - Living Situation & Occupation Living situation: Reports: , Alone Occupation: Employed ED ROS GENERAL - Review of Systems Review Of Systems: See Below Constitutional: Reports: No Symptoms. Denies: Fever HEENT: Reports: No Symptoms. Denies: Sinus Problem Respiratory: Reports: No Symptoms Cardiovascular: Reports: No Symptoms Endocrine: Reports: No Symptoms GI/Abdominal: Reports: No Symptoms : Reports: No Symptoms Musculoskeletal: Reports: No Symptoms Skin: Reports: No Symptoms Neurological: Reports: Headache. Denies: Confusion, Dizziness, Numbness, Paresthesia, Seizure, Syncope, Trouble Speaking, Difficulty Walking, Weakness, Change in Speech, Gait Disturbance Psychiatric: Reports: No Symptoms Hematologic/Lymphatic: Reports: No Symptoms Immunologic: Reports: No Symptoms - Physical Exam Exam: See Below Exam Limited By: No Limitations General Appearance: Alert, WD/WN, No Apparent Distress Eye Exam: Bilateral Eye: EOMI, PERRL Nose: Normal Inspection, Normal Mucosa, No Blood Throat/Mouth: Normal Inspection, Normal Lips, Normal Teeth, Normal Gums, Normal Oropharynx, Normal Voice, No Airway Compromise Head Exam: Atraumatic, Normocephalic Neck: Normal Inspection, Supple, Non-Tender, Full Range of Motion Respiratory/Chest: No Respiratory Distress, Lungs Clear, Normal Breath Sounds, No Accessory Muscle Use, Chest Non-Tender Cardiovascular: Normal Peripheral Pulses, Regular Rate, Rhythm, No Edema, No Gallop, No JVD, No Murmur, No Rub GI/Abdominal: Normal Bowel Sounds, Soft, Non-Tender, No Organomegaly, No Distention, No Abnormal Bruit, No Mass Neuro Exam (Abbreviated): Alert, Oriented, CN II-XII Intact, Normal Cognition, Normal Gait, Normal Reflexes, No Motor/Sensory Deficits Back Exam: Normal Inspection, Full Range of Motion, NT Extremities: Normal Inspection, Normal Range of Motion, Non-Tender, No Pedal Edema, Normal Capillary Refill Psychiatric: Normal Affect, Normal Mood Skin Exam: Warm, Dry, Intact, Normal Color, No Rash Course - Vital Signs Last Recorded V/S: Last Vital Signs Temp 36.1 C 06/18/17 16:55 Pulse 64 06/18/17 16:55 Resp 16 06/18/17 16:55 BP 149/64 H 06/18/17 16:55 Pulse Ox 96 06/18/17 16:55 Departure - Departure Time of Disposition: 17:37 Disposition: Home, Self-Care 01 Condition: Good Clinical Impression: Tension-type headache - Discharge Information Instructions: Tension Headache, [id number] Referrals: Idalia Cuellar MD [Primary Care Provider] - Additional Instructions: 1. discharge home 2. motrin 600mg PO if headache returns 3. benadryl 50mg PO if headache returns 4. return to ER for worsening symptoms 5. follow up in clinic for further evaluation and treatment - Assessment/Plan Assessment:: 1. mild headache Plan: 1. discharge home 2. motrin 600mg PO if headache returns 3. benadryl 50mg PO if headache returns 4. return to ER for worsening symptoms 5. follow up in clinic for further evaluation and treatment
== END 2017-06-18 17:40 | disposition home or self-care (01) ==
LOC: KA.ED 16:48
DX: G44.209 Tension-type headache, unspecified, not intractable (principal); Z79.899 Other long term (current) drug therapy; Z87.891 Personal history of nicotine dependence
CPT/HCPCS: 96372; 99283; J1885

== ENCOUNTER 2017-07-03 12:50 | Emergency (ER) | payer MEDICAID ==
[2017-07-03 13:15] VITALS: BP 129/55
[2017-07-03 13:34] LABS: CHLORIDE,CL 105 mmol/L (98-115); SODIUM,NA 142 mmol/L (136-145)
--- NOTE | 2017-07-03 13:36 | EDM.PDOC ---
ED HPI GENERAL MEDICAL PROBLEM - General Chief Complaint: Chest Pain Time Seen by Provider: 07/03/17 13:15 Source of Information: Reports: Patient History Limitations: Reports: No Limitations - History of Present Illness INITIAL COMMENTS - FREE TEXT/NARRATIVE: Patient presents via ambulance from [facility] where he had stopped to pay a bill. He was having mild chest pain and a thick feeling in his tongue. He says he first noticed the chest pain and some left shoulder pain at noon. He still felt it a little later at the clinic so they called an ambulance for him. In the ambulance he was given ASA 81x4 and Nitro SL. This took his pain in chest and shoulder away. He says he had a stroke 3 months ago and takes an aspirin daily. He denies any history of OK, stents or other heart problems. He quit smoking 3 years ago but had smoked for over 30 years. Treatments ADMINISTRATIVE DIRECTOR: Reports: Aspirin, Nitroglycerin Chest Pain Score (Numeric/FACES): 1 - Related Data Allergies Allergy/AdvReac Type Severity Reaction Status Date / Time No Known Drug Allergies Allergy Other Verified 07/03/17 13:11 Home Meds: Home Meds Albuterol [Ventolin HFA] 2 puff INH Q4H PRN 03/27/17 [History] Aspirin [Rob Chewable Aspirin] 81 mg PO DAILY 06/09/17 [History] atorvaSTATin [Lipitor] 40 mg PO DAILY 06/09/17 [History] Past Medical History - Past Health History Medical/Surgical History: Denies Medical/Surgical History HEENT History: Reports: Hard of Hearing, Impaired Vision Other HEENT History: Right-sided chronic hearing loss secondary to previous otitis media or infection, patient wears glasses Cardiovascular History: Reports: High Cholesterol, Other (See Below) Other Cardiovascular History: Patient states he has a hole in his heart that needs to be repaired. Respiratory History: Reports: COPD Gastrointestinal History: Reports: Colon Polyp Other Gastrointestinal History: Multiple polypectomies of unknown type as below Genitourinary History: Reports: None Musculoskeletal History: Reports: Arthritis, Back Pain, Chronic, Fracture, Osteoarthritis, Other (See Below) Other Musculoskeletal History: Right ankle fracture in 1989, spina bifida occulta in L5-S1 region Neurological History: Reports: CVA, Headaches, Chronic Other Neuro History: Chronic tension headaches which occur about every 3 months with previous negative CT scan of the head Psychiatric History: Reports: None Endocrine/Metabolic History: Reports: None Hematologic History: Reports: None Immunologic History: Reports: None Oncologic (Cancer) History: Reports: None Dermatologic History: Reports: None - Infectious Disease History Infectious Disease History: Reports: None Other Infectious Disease History: does not think that he did. - Past Surgical History Head Surgeries/Procedures: Reports: None HEENT Surgical History: Reports: Adenoidectomy, Oral Surgery, Tonsillectomy, Other (See Below) Cardiovascular Surgical History: Reports: None Respiratory Surgical History: Reports: None GI Surgical History: Reports: Appendectomy, Colonoscopy, Polypectomy Male Surgical History: Reports: None Endocrine Surgical History: Reports: None Neurological Surgical History: Reports: None Oncologic Surgical History: Reports: None Dermatological Surgical History: Reports: None - Past Imaging History Past Imaging History: Reports: CAT Scan Social & Family History - Family History Family Medical History: Noncontributory Cardiac: Reports: Bypass Endocrine/Metabolic: Reports: IDDM - Tobacco Use Smoking Status *Q: Former Smoker Years of Tobacco use: 42 Packs/Tins Daily: 2 Used Tobacco, but Quit: Yes Month/Year Tobacco Last Used: 2013 Second Hand Smoke Exposure: No - Caffeine Use Caffeine Use: Reports: Coffee, Energy Drinks, Soda, Tea - Alcohol Use Days Per Week of Alcohol Use: 0 - Recreational Drug Use Recreational Drug Use: No Drug Use in Last 12 Months: No - Living Situation & Occupation Living situation: Reports: , Alone Occupation: Employed ED ROS GENERAL - Review of Systems Review Of Systems: See Below Constitutional: Reports: Diaphoresis. Denies: Fever, Weakness HEENT: Denies: Ear Pain, Throat Pain, Vision Change Respiratory: Reports: Shortness of Breath, Cough Cardiovascular: Reports: Chest Pain. Denies: Lightheadedness, Syncope GI/Abdominal: Denies: Abdominal Pain, Constipation, Diarrhea, Nausea, Vomiting : Denies: Dysuria, Flank Pain Musculoskeletal: Reports: Shoulder Pain (left but gone now). Denies: Neck Pain Skin: Reports: Diaphoresis (gone now). Denies: Cyanosis, Jaundice, Mottled, Pallor Neurological: Denies: Confusion, Dizziness, Headache, Seizure, Syncope, Trouble Speaking, Difficulty Walking Psychiatric: Denies: Agitation, Anxiety ED EXAM, GENERAL - Physical Exam Exam: See Below Exam Limited By: No Limitations General Appearance: Alert, WD/WN, No Apparent Distress Eye Exam: Bilateral Eye: EOMI, Normal Inspection (full visual madrigal), PERRL Ears: Normal External Exam, Hearing Grossly Normal Nose: Normal Inspection, No Blood Throat/Mouth: Normal Inspection, Normal Lips, Normal Oropharynx, Normal Voice, No Airway Compromise Head: Atraumatic, Normocephalic Neck: Normal Inspection, Supple, Non-Tender, Full Range of Motion Respiratory/Chest: No Respiratory Distress, Decreased Breath Sounds (throughout) , Wheezing (faint). No: Stridor Cardiovascular: Regular Rate, Rhythm, No Murmur GI/Abdominal: Normal Bowel Sounds, Soft, Non-Tender, No Organomegaly, No Distention Back Exam: Normal Inspection, Full Range of Motion. No: CVA Tenderness (L), CVA Tenderness (R) Extremities: Normal Inspection, Normal Range of Motion, Non-Tender Neurological: Alert, Oriented, CN II-XII Intact, Normal Cognition, No Motor/ Sensory Deficits Psychiatric: Normal Affect, Normal Mood Skin Exam: Warm, Dry, Intact, Normal Color, No Rash Course - Vital Signs Last Recorded V/S: Last Vital Signs Temp 98.8 F 07/03/17 13:04 Pulse 65 07/03/17 13:14 Resp 24 H 07/03/17 13:14 BP 129/55 L 07/03/17 13:14 Pulse Ox 93 L 07/03/17 13:14 - Orders/Labs/Meds Labs: Laboratory Tests 07/03/17 07/03/17 07/03/17 Range/Units 12:55 12:55 16:00 WBC 6.7 (5.0-10.0) 10^3/uL RBC 5.07 (4.50-6.00) 10^6/uL Hgb 15.8 (13.0-17.0) g/dL Hct 46.5 (40.0-52.0) % MCV 91.7 (82.0-92.0) fL MCH 31.2 H (27.0-31.0) pg MCHC 34.0 (32.0-36.0) g/dL RDW 11.8 (11.5-14.5) % Plt Count 308 H (150-300) 10^3/uL MPV 7.3 L (7.4-10.4) fL Neut % (Auto) 68.2 (50.0-70.0) % Lymph % (Auto) 23.7 (20.0-40.0) % [place] % (Auto) 4.6 (2.0-8.0) % Eos % (Auto) 3.5 H (1.0-3.0) % Baso % (Auto) 0.0 (0.0-1.0) % Neut # (Auto) 4.6 (2.5-7.0) 10^3/uL Lymph # (Auto) 1.6 (1.0-4.0) 10^3/uL [place] # (Auto) 0.3 (0.1-0.8) 10^3/uL Eos # (Auto) 0.2 (0.1-0.3) 10^3/uL Baso # (Auto) 0.0 (0.0-0.1) 10^3/uL Sodium 142 (136-145) mmol/L Potassium 4.3 (3.3-5.3) mmol/L Chloride 105 (98-115) mmol/L Carbon Dioxide 31.3 (21.0-32.0) mmol/L BUN 16 (6-25) mg/dL Creatinine 0.96 (0.51-1.17) mg/dL Est Cr Clr Drug Dosing 67.50 mL/min Estimated GFR (MDRD) > 60 mL/min Glucose 113 H (70-110) mg/dL Calcium 8.6 L (8.7-10.3) mg/dL Troponin I < 0.04 < 0.04 (0.00-0.070) ng/mL Meds: Medications Discontinued Medications Generic Name Dose Route Start Last Admin Trade Name Freq PRN Reason Stop Dose Admin Sodium Chloride 1,000 mls @ 500 mls/hr 07/03/17 14:18 07/03/17 14:37 Normal Saline IV 07/03/17 16:17 500 mls/hr .BOLUS ONE Administration - Re-Assessments/Exams Free Text/Narrative Re-Assessment/Exam: 07/03/17 13:54 Labs are normal. Trop <0.04 and EKG shows no ST changes. CXR shows evidence of underlying COPD but no evidence of cardiomegaly, infiltrates, effusions or other acute pathology. Patient has no pain since taking the nitro and ASA in the ambulance. I see no signs of stroke and will run second troponin to rule out OK. Discussed findings and treatment plan with him. He is okay staying here for a few hours to get a second troponin to confirm. Patient has remained stable throughout ER course. Free Text/Narrative Re-Assessment/Exam: 07/11/17 11:28 Second trop was unchanged and patient remained stable throughout extended ER stay. He was discharged to home with close follow up with his PCP. Departure - Departure Time of Disposition: 12:34 Disposition: Home, Self-Care 01 Condition: Good Clinical Impression: Chest pain in adult Referrals: Idalia Cuellar MD [Primary Care Provider] - Forms: ED Department Discharge Additional Instructions: 1. Follow up with your PCP tomorrow for recheck. If worsening return immediately to ER.
[2017-07-03] MEDS ORDERED: Sodium Chloride 0.9% 1,000 ML IV ONE (14:18)
== END 2017-07-03 16:40 | disposition home or self-care (01) ==
LOC: KA.ED 12:50
DX: R07.9 Chest pain, unspecified (principal); E78.00 Pure hypercholesterolemia, unspecified; Z79.82 Long term (current) use of aspirin; Z79.899 Other long term (current) drug therapy; Z87.891 Personal history of nicotine dependence
CPT/HCPCS: 71046; 80048; 84484; 85025; 93005; 96360; 99285; J7030

== ENCOUNTER 2017-07-15 18:49 | Emergency (ER) | payer MEDICAID ==
[2017-07-15 19:10] VITALS: BP 160/85
--- NOTE | 2017-07-15 19:10 | EDM.PDOC ---
ED HPI GENERAL MEDICAL PROBLEM - General Chief Complaint: General Stated Complaint: NOT FEELING RIGHT Time Seen by Provider: 07/15/17 18:55 Source of Information: Reports: Patient History Limitations: Reports: No Limitations - History of Present Illness INITIAL COMMENTS - FREE TEXT/NARRATIVE: Claims to eat a hot dog this afternoon and shortly thereafter started salivating more so than usual. This was concerning to him secondary of his previous TIA/stroke. Symptoms have seemingly resolved at this time and is here for evaluation and reassurance. Acknowledges minimal water intake to maybe 2 Lasix per day and part of a bottle of pop. Acknowledges occasional forgetting of pills on a regular basis as he gets to work and then realizes he is now at work and the pills are at home. This is new to him after his event and is not used to taking scheduled medication Onset: Today, Sudden Duration: Minutes:, Improving Location: Reports: Head, Neck Quality: Reports: Pressure, Other (Elevation) Improves with: Reports: Rest Worsens with: Reports: None Context: Reports: Activity Associated Symptoms: Reports: No Other Symptoms - Related Data Allergies Allergy/AdvReac Type Severity Reaction Status Date / Time No Known Drug Allergies Allergy Other Verified 07/15/17 18:56 Home Meds: Home Meds Albuterol [Ventolin HFA] 2 puff INH Q4H PRN 03/27/17 [History] Aspirin [Rob Chewable Aspirin] 81 mg PO DAILY 06/09/17 [History] atorvaSTATin [Lipitor] 40 mg PO DAILY 06/09/17 [History] Lisinopril 10 mg PO DAILY 07/15/17 [History] Past Medical History - Past Health History Medical/Surgical History: Denies Medical/Surgical History HEENT History: Reports: Hard of Hearing, Impaired Vision Other HEENT History: Right-sided chronic hearing loss secondary to previous otitis media or infection, patient wears glasses Cardiovascular History: Reports: High Cholesterol, Other (See Below) Other Cardiovascular History: Patient states he has a hole in his heart that needs to be repaired. Respiratory History: Reports: COPD Gastrointestinal History: Reports: Colon Polyp Other Gastrointestinal History: Multiple polypectomies of unknown type as below Genitourinary History: Reports: None Musculoskeletal History: Reports: Arthritis, Back Pain, Chronic, Fracture, Osteoarthritis, Other (See Below) Other Musculoskeletal History: Right ankle fracture in 1989, spina bifida occulta in L5-S1 region Neurological History: Reports: CVA, Headaches, Chronic Other Neuro History: Chronic tension headaches which occur about every 3 months with previous negative CT scan of the head Psychiatric History: Reports: None Endocrine/Metabolic History: Reports: None Hematologic History: Reports: None Immunologic History: Reports: None Oncologic (Cancer) History: Reports: None Dermatologic History: Reports: None - Infectious Disease History Infectious Disease History: Reports: None Other Infectious Disease History: does not think that he did. - Past Surgical History Head Surgeries/Procedures: Reports: None HEENT Surgical History: Reports: Adenoidectomy, Oral Surgery, Tonsillectomy, Other (See Below) Cardiovascular Surgical History: Reports: None Respiratory Surgical History: Reports: None GI Surgical History: Reports: Appendectomy, Colonoscopy, Polypectomy Male Surgical History: Reports: None Endocrine Surgical History: Reports: None Neurological Surgical History: Reports: None Oncologic Surgical History: Reports: None Dermatological Surgical History: Reports: None - Past Imaging History Past Imaging History: Reports: CAT Scan Social & Family History - Family History Family Medical History: Noncontributory Cardiac: Reports: Bypass Endocrine/Metabolic: Reports: IDDM - Tobacco Use Smoking Status *Q: Former Smoker Years of Tobacco use: 42 Packs/Tins Daily: 2 Used Tobacco, but Quit: Yes Month/Year Tobacco Last Used: 2013 Second Hand Smoke Exposure: No - Caffeine Use Caffeine Use: Reports: Coffee, Energy Drinks, Soda, Tea - Alcohol Use Days Per Week of Alcohol Use: 0 - Recreational Drug Use Recreational Drug Use: No Drug Use in Last 12 Months: No - Living Situation & Occupation Living situation: Reports: , Alone Occupation: Employed ED ROS GENERAL - Review of Systems Review Of Systems: See Below Constitutional: Reports: No Symptoms HEENT: Reports: Other Respiratory: Reports: No Symptoms (Salivation) Cardiovascular: Reports: No Symptoms Endocrine: Reports: No Symptoms GI/Abdominal: Reports: No Symptoms : Reports: No Symptoms Musculoskeletal: Reports: No Symptoms Skin: Reports: No Symptoms Neurological: Reports: No Symptoms Psychiatric: Reports: No Symptoms Hematologic/Lymphatic: Reports: No Symptoms Immunologic: Reports: No Symptoms ED EXAM, GENERAL - Physical Exam Exam: See Below Free Text/Narrative:: Alert oriented conversing freely and no evidence of distress. HEENT is benign to discharge or deformity. There is no involvement the auditory canals or tympanic membranes. Neck is soft supple no lymphadenopathy no edema. Oral pharynx shows no erythema no hypertrophy with what appears normal salivation with moist mucous membranes. Thorax clear cardiac is regular there is a palpable "cafeteria monitor" above the left nipple. Exam Limited By: No Limitations General Appearance: Alert, WD/WN, No Apparent Distress Ears: Normal External Exam, Normal TMs Nose: Normal Inspection Throat/Mouth: Normal Inspection Head: Atraumatic, Normocephalic Neck: Normal Inspection, Non-Tender Respiratory/Chest: No Respiratory Distress, Lungs Clear Cardiovascular: Regular Rate, Rhythm Course - Vital Signs Last Recorded V/S: Last Vital Signs Temp 36.5 C 07/15/17 19:07 Pulse 74 07/15/17 19:07 Resp 20 07/15/17 19:07 BP 160/85 H 07/15/17 19:07 Pulse Ox 97 07/15/17 19:07 Departure - Departure Time of Disposition: 19:10 Disposition: Home, Self-Care 01 Condition: Good Clinical Impression: Salivation excessive - Discharge Information Referrals: Idalia Cuellar MD [Primary Care Provider] - Forms: ED Department Discharge Additional Instructions: Increase daily water drinking. Avoid heavily salted foods such as hot dogs as that may make use elevate more to equalize the salt. Please remember to take your pills on a regular basis, at the same time of day as much as possible. Take them with a full glass of water. Recheck as needed - Problem List & Annotations (1) Salivation excessive SNOMED Code(s): 75512998 Code(s): K11.7 - DISTURBANCES OF SALIVARY SECRETION Status: Acute Priority: Medium Current Visit: Yes - Problem List Review Problem List Initiated/Reviewed/Updated: Yes - Assessment/Plan Plan: Increase daily water drinking. Avoid heavily salted foods such as hot dogs as that may make use elevate more to equalize the salt. Please remember to take your pills on a regular basis, at the same time of day as much as possible. Take them with a glass of water.
== END 2017-07-15 19:15 | disposition home or self-care (01) ==
LOC: KA.ED 18:49
DX: K11.7 Disturbances of salivary secretion (principal); E78.00 Pure hypercholesterolemia, unspecified; Z79.82 Long term (current) use of aspirin; Z79.899 Other long term (current) drug therapy; Z87.891 Personal history of nicotine dependence
CPT/HCPCS: 99283

== ENCOUNTER 2017-08-03 07:15 | Emergency (ER) | payer BC, MEDICAID ==
[2017-08-03 07:33] VITALS: BP 158/85
[2017-08-03] MEDS ORDERED: Sodium Chloride 0.9% 5 ML Syringe FLUSH PRN (07:47)
--- NOTE | 2017-08-03 07:53 | EDM.PDOC ---
<Romel Lawler - Last Filed: 08/03/17 07:48> ED HPI GENERAL MEDICAL PROBLEM - General Chief Complaint: General Stated Complaint: DIZZINESS,LEG WEAKNESS Time Seen by Provider: 08/03/17 07:45 Source of Information: Reports: Patient History Limitations: Reports: No Limitations - History of Present Illness INITIAL COMMENTS - FREE TEXT/NARRATIVE: Patient is a 56-year-old gentleman who presents to the emergency department this morning with a complaint of isolated episode of dizziness and weakness in his legs. Patient states that he was in a standing position at work and his weak legs became weak. He also felt slightly dizzy and thought he was going to pass out. Episode lasted a few seconds, but he was concerned because a friend of his had a similar episode and . Patient denies chest pain, shortness of breath, headache, blurry vision, fever, out of country travel, or similar episode in the past. Onset: Today, Sudden Onset Date: 08/03/17 Onset Time: 06:00 Duration: Minutes: Quality: Reports: Other (Dizziness and weakness) Improves with: Reports: Movement, Other (Spontaneously) Context: Reports: Other (While standing) Associated Symptoms: Reports: Weakness, Other (Dizzy) - Related Data Allergies Allergy/AdvReac Type Severity Reaction Status Date / Time No Known Drug Allergies Allergy Other Verified 08/03/17 07:34 Home Meds: Home Meds Albuterol [Ventolin HFA] 2 puff INH Q4H PRN 03/27/17 [History] Aspirin [Rob Chewable Aspirin] 81 mg PO DAILY 06/09/17 [History] atorvaSTATin [Lipitor] 40 mg PO DAILY 06/09/17 [History] Lisinopril 10 mg PO DAILY 07/15/17 [History] Past Medical History - Past Health History Medical/Surgical History: Denies Medical/Surgical History HEENT History: Reports: Hard of Hearing, Impaired Vision, Other (See Below) Other HEENT History: Right-sided chronic hearing loss secondary to previous otitis media or infection, patient wears glasses Cardiovascular History: Reports: High Cholesterol, Other (See Below) Other Cardiovascular History: Patient states he has a hole in his heart that needs to be repaired. Respiratory History: Reports: COPD Gastrointestinal History: Reports: Colon Polyp Other Gastrointestinal History: Multiple polypectomies of unknown type as below Genitourinary History: Reports: None Musculoskeletal History: Reports: Arthritis, Back Pain, Chronic, Fracture, Osteoarthritis, Other (See Below) Other Musculoskeletal History: Right ankle fracture in 1989, spina bifida occulta in L5-S1 region Neurological History: Reports: CVA, Headaches, Chronic, Other (See Below) Other Neuro History: Chronic tension headaches which occur about every 3 months with previous negative CT scan of the head Psychiatric History: Reports: None Endocrine/Metabolic History: Reports: None Hematologic History: Reports: None Immunologic History: Reports: None Oncologic (Cancer) History: Reports: None Dermatologic History: Reports: None - Infectious Disease History Infectious Disease History: Reports: None Other Infectious Disease History: does not think that he did. - Past Surgical History HEENT Surgical History: Reports: Adenoidectomy, Oral Surgery, Tonsillectomy GI Surgical History: Reports: Appendectomy, Colonoscopy, Polypectomy - Past Imaging History Past Imaging History: Reports: CAT Scan Social & Family History - Family History Family Medical History: Noncontributory Cardiac: Reports: Bypass Endocrine/Metabolic: Reports: IDDM - Tobacco Use Smoking Status *Q: Former Smoker Used Tobacco, but Quit: Yes Month/Year Tobacco Last Used: 2013 - Caffeine Use Caffeine Use: Reports: Coffee, Energy Drinks, Soda, Tea - Recreational Drug Use Recreational Drug Use: No - Living Situation & Occupation Living situation: Reports: , Alone Occupation: Employed ED ROS GENERAL - Review of Systems Review Of Systems: ROS reveals no pertinent complaints other than HPI. Constitutional: Reports: No Symptoms HEENT: Reports: No Symptoms Respiratory: Reports: No Symptoms Cardiovascular: Reports: No Symptoms Endocrine: Reports: No Symptoms GI/Abdominal: Reports: No Symptoms : Reports: No Symptoms Musculoskeletal: Reports: No Symptoms Skin: Reports: No Symptoms Neurological: Reports: Dizziness, Weakness Psychiatric: Reports: No Symptoms Hematologic/Lymphatic: Reports: No Symptoms Immunologic: Reports: No Symptoms ED EXAM, GENERAL - Physical Exam Exam: See Below Exam Limited By: No Limitations General Appearance: Alert, WD/WN, No Apparent Distress Eye Exam: Bilateral Eye: Normal Inspection Ears: Normal External Exam, Normal Canal, Hearing Grossly Normal, Normal TMs Nose: Normal Inspection, Normal Mucosa, No Blood Throat/Mouth: Normal Inspection, Normal Oropharynx, No Airway Compromise Head: Atraumatic, Normocephalic Neck: Normal Inspection, Supple, Non-Tender, Full Range of Motion. No: Carotid Bruit, Lymphadenopathy (L), Lymphadenopathy (R) Respiratory/Chest: No Respiratory Distress, Lungs Clear, Normal Breath Sounds, No Accessory Muscle Use, Chest Non-Tender Cardiovascular: Normal Peripheral Pulses, Regular Rate, Rhythm, No Murmur, No Rub GI/Abdominal: Normal Bowel Sounds, Soft, Non-Tender Back Exam: Normal Inspection. No: CVA Tenderness (L), CVA Tenderness (R) Extremities: Normal Inspection, No Pedal Edema Neurological: Alert, Oriented, CN II-XII Intact, Normal Cognition, No Motor/ Sensory Deficits Psychiatric: Normal Affect, Normal Mood Skin Exam: Warm, Dry, Intact, Normal Color, No Rash Lymphatic: No Adenopathy Course - Vital Signs Last Recorded V/S: Last Vital Signs Temp 96.3 F 08/03/17 07:30 Pulse 74 08/03/17 07:30 Resp 18 08/03/17 07:30 BP 158/85 H 08/03/17 07:30 Pulse Ox 99 08/03/17 07:30 Orthostatic Blood Pressure [ 144/67 Standing] Orthostatic Blood Pressure [ 138/69 Sitting] Orthostatic Blood Pressure [ 142/67 Supine] - Orders/Labs/Meds Orders: Active Orders 24 hr Category Date Time Status EKG Documentation Completion [RC] ASDIRECTED Care 08/03/17 07:47 Active Chest 1V Frontal [CR] Stat Exams 08/03/17 07:46 Ordered UA W/MICROSCOPIC [URIN] Stat Lab 08/03/17 07:46 Ordered Peripheral IV Insertion Adult [OM.PC] Routine Oth 08/03/17 07:47 Ordered EKG 12 Lead [EK] Routine Ther 08/03/17 07:46 Ordered Labs: Laboratory Tests 08/03/17 08/03/17 08/03/17 Range/Units 08:05 08:05 08:05 WBC 6.8 (5.0-10.0) 10^3/uL RBC 5.26 (4.50-6.00) 10^6/uL Hgb 16.4 (13.0-17.0) g/dL Hct 48.6 (40.0-52.0) % MCV 92.5 H (82.0-92.0) fL MCH 31.1 H (27.0-31.0) pg MCHC 33.6 (32.0-36.0) g/dL RDW 11.6 (11.5-14.5) % Plt Count 284 (150-300) 10^3/uL MPV 7.6 (7.4-10.4) fL Neut % (Auto) 65.0 (50.0-70.0) % Lymph % (Auto) 23.7 (20.0-40.0) % [place] % (Auto) 8.5 H (2.0-8.0) % Eos % (Auto) 2.8 (1.0-3.0) % Baso % (Auto) 0.0 (0.0-1.0) % Neut # (Auto) 4.4 (2.5-7.0) 10^3/uL Lymph # (Auto) 1.6 (1.0-4.0) 10^3/uL [place] # (Auto) 0.6 (0.1-0.8) 10^3/uL Eos # (Auto) 0.2 (0.1-0.3) 10^3/uL Baso # (Auto) 0.0 (0.0-0.1) 10^3/uL PT 9.2 (8.9-11.4) SEC INR 0.9 (0.9-1.1) APTT 22.9 (20.8-31.2) SEC Sodium 143 (136-145) mmol/L Potassium 4.8 (3.3-5.3) mmol/L Chloride 106 (98-115) mmol/L Carbon Dioxide 32.2 H (21.0-32.0) mmol/L BUN 23 (6-25) mg/dL Creatinine 0.94 (0.51-1.17) mg/dL Est Cr Clr Drug Dosing 68.94 mL/min Estimated GFR (MDRD) > 60 mL/min Glucose 99 (70-110) mg/dL Calcium 8.5 L (8.7-10.3) mg/dL Total Bilirubin 0.3 (0.2-1.0) mg/dL AST 19 (15-37) U/L ALT 23 (12-78) U/L Alkaline Phosphatase 160 H (46-116) IU/L Total Protein 7.2 (6.4-8.2) g/dL Albumin 3.92 (3.00-4.80) g/dL Specimen Type Urine Color (YELLOW) Urine Appearance (CLEAR) Urine pH (5.0-9.0) Ur Specific [place] (1.005-1.030) Urine Protein (NEGATIVE) mg/dL Urine Glucose (UA) (NEGATIVE) mg/dL Urine Ketones (NEGATIVE) mg/dL Urine Occult Blood (NEGATIVE) Urine Nitrite (NEGATIVE) Urine Bilirubin (NEGATIVE) Urine Urobilinogen (0.2-1.0) E.U./dL Ur Leukocyte Esterase (NEGATIVE) Urine RBC /HPF Urine WBC /HPF Ur Epithelial Cells /LPF Amorphous Sediment (0/HPF) /HPF Urine Bacteria (NONE TO FEW) /HPF Urine Mucus (NEGATIVE) /LPF 08/03/17 Range/Units 08:36 WBC (5.0-10.0) 10^3/uL RBC (4.50-6.00) 10^6/uL Hgb (13.0-17.0) g/dL Hct (40.0-52.0) % MCV (82.0-92.0) fL MCH (27.0-31.0) pg MCHC (32.0-36.0) g/dL RDW (11.5-14.5) % Plt Count (150-300) 10^3/uL MPV (7.4-10.4) fL Neut % (Auto) (50.0-70.0) % Lymph % (Auto) (20.0-40.0) % [place] % (Auto) (2.0-8.0) % Eos % (Auto) (1.0-3.0) % Baso % (Auto) (0.0-1.0) % Neut # (Auto) (2.5-7.0) 10^3/uL Lymph # (Auto) (1.0-4.0) 10^3/uL [place] # (Auto) (0.1-0.8) 10^3/uL Eos # (Auto) (0.1-0.3) 10^3/uL Baso # (Auto) (0.0-0.1) 10^3/uL PT (8.9-11.4) SEC INR (0.9-1.1) APTT (20.8-31.2) SEC Sodium (136-145) mmol/L Potassium (3.3-5.3) mmol/L Chloride (98-115) mmol/L Carbon Dioxide (21.0-32.0) mmol/L BUN (6-25) mg/dL Creatinine (0.51-1.17) mg/dL Est Cr Clr Drug Dosing mL/min Estimated GFR (MDRD) mL/min Glucose (70-110) mg/dL Calcium (8.7-10.3) mg/dL Total Bilirubin (0.2-1.0) mg/dL AST (15-37) U/L ALT (12-78) U/L Alkaline Phosphatase (46-116) IU/L Total Protein (6.4-8.2) g/dL Albumin (3.00-4.80) g/dL Specimen Type Urincc Urine Color Yellow (YELLOW) Urine Appearance Clear (CLEAR) Urine pH 7.5 (5.0-9.0) Ur Specific [place] 1.020 (1.005-1.030) Urine Protein Trace H (NEGATIVE) mg/dL Urine Glucose (UA) Negative (NEGATIVE) mg/dL Urine Ketones Negative (NEGATIVE) mg/dL Urine Occult Blood Trace-intact H (NEGATIVE) Urine Nitrite Negative (NEGATIVE) Urine Bilirubin Negative (NEGATIVE) Urine Urobilinogen 0.2 (0.2-1.0) E.U./dL Ur Leukocyte Esterase Trace H (NEGATIVE) Urine RBC 0-5 /HPF Urine WBC 0-5 /HPF Ur Epithelial Cells Rare /LPF Amorphous Sediment Moderate H (0/HPF) /HPF Urine Bacteria Few (NONE TO FEW) /HPF Urine Mucus Few H (NEGATIVE) /LPF Meds: Medications Discontinued Medications Generic Name Dose Route Start Last Admin Trade Name Freq PRN Reason Stop Dose Admin Sodium Chloride 5 ml 08/03/17 07:47 Syrex Flush FLUSH Q8HR PRN Keep Vein Open Departure - Departure Disposition: Home, Self-Care 01 Clinical Impression: Episodic lightheadedness - Discharge Information Referrals: Idalia Cuellar MD [Primary Care Provider] - Forms: ED Department Discharge Additional Instructions: 1. Increase water intake to 6-8 cups a day. 2. Follow up with your PCP on Sunday for evaluation. 3. Return to ER if worsening. MLP Sign Off - Signature Requirements MLP Sign Off: Yes <Fracisco Gregory - Last Filed: 08/03/17 09:18> Course - Re-Assessments/Exams Free Text/Narrative Re-Assessment/Exam: 08/03/17 08:48 Taking over care of patient from Oswaldo Lawler. Reviewed notes and re-evaluated patient. He tells me that the episode involved feeling lightheaded, vision decrease and bilat leg weakness that lasted 10-15 seconds then resolved quickly when he was assisted to a chair. No chest pain or any other problem or symptom. He now feels completely normal. Orthostatic pressures show no hypotension. Discussed test results and discharge plan with patient. He remained stable throughout ER course and was discharged to home in stable condition with plan to follow up with PCP on Sunday. Departure - Departure Time of Disposition: 09:04 Condition: Good
[2017-08-03 08:38] LABS: CHLORIDE,CL 106 mmol/L (98-115); SODIUM,NA 143 mmol/L (136-145)
== END 2017-08-03 09:10 | disposition home or self-care (01) ==
LOC: KA.ED 07:15
DX: R42 Dizziness and giddiness (principal); E78.00 Pure hypercholesterolemia, unspecified; Z79.899 Other long term (current) drug therapy; Z87.891 Personal history of nicotine dependence
CPT/HCPCS: 36415; 71045; 80053; 81001; 85025; 85610; 85730; 93005; 99284

== ENCOUNTER 2017-10-15 13:27 | Emergency (ER) | payer BC, MEDICAID ==
[2017-10-15 13:33] VITALS: BP 155/60
--- NOTE | 2017-10-15 13:45 | EDM.PDOC ---
ED HPI GENERAL MEDICAL PROBLEM - General Chief Complaint: General Stated Complaint: DIZZINESS, LIGHT HEADED Time Seen by Provider: 10/15/17 13:44 Source of Information: Reports: Patient History Limitations: Reports: No Limitations - History of Present Illness Onset: Today, Sudden Onset Date: 10/15/17 Onset Time: 12:55 Duration: Other (1-2 seconds resolved) Location: Reports: Head Quality: Reports: Other Severity: Mild Improves with: Reports: None Worsens with: Reports: None Context: Reports: Activity Associated Symptoms: Reports: Other (itchy finger tips 2nd & 3rd Left) - Related Data Allergies Allergy/AdvReac Type Severity Reaction Status Date / Time No Known Drug Allergies Allergy Other Verified 10/15/17 13:38 Home Meds: Home Meds Albuterol [Ventolin HFA] 2 puff INH Q4H PRN 03/27/17 [History] Aspirin [Rob Chewable Aspirin] 81 mg PO DAILY 06/09/17 [History] atorvaSTATin [Lipitor] 40 mg PO DAILY 06/09/17 [History] Lisinopril 10 mg PO DAILY 07/15/17 [History] Fluticasone Propionate [Flovent HFA] 2 puff INH BID 10/15/17 [History] Past Medical History HEENT History: Reports: Hard of Hearing, Impaired Vision, Other (See Below) Other HEENT History: 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 Respiratory History: Reports: COPD Gastrointestinal History: Reports: Colon Polyp Other Gastrointestinal History: Multiple polypectomies of unknown type as below Genitourinary History: Reports: None Musculoskeletal History: Reports: Arthritis, Back Pain, Chronic, Fracture, Osteoarthritis, Other (See Below) Other Musculoskeletal History: Right ankle fracture in 1989, spina bifida occulta in L5-S1 region Neurological History: Reports: CVA, Headaches, Chronic, Other (See Below) Other Neuro History: Chronic tension headaches which occur about every 3 months with previous negative CT scan of the head Psychiatric History: Reports: None Endocrine/Metabolic History: Reports: None Hematologic History: Reports: None Immunologic History: Reports: None Oncologic (Cancer) History: Reports: None Dermatologic History: Reports: None - Infectious Disease History Infectious Disease History: Reports: None Other Infectious Disease History: does not think that he did. - Past Surgical History HEENT Surgical History: Reports: Adenoidectomy, Oral Surgery, Tonsillectomy GI Surgical History: Reports: Appendectomy, Colonoscopy, Polypectomy - Past Imaging History Past Imaging History: Reports: CAT Scan Social & Family History - Family History Family Medical History: Noncontributory Cardiac: Reports: Bypass Endocrine/Metabolic: Reports: IDDM - Caffeine Use Caffeine Use: Reports: Coffee, Energy Drinks, Soda, Tea - Living Situation & Occupation Living situation: Reports: , Alone Occupation: Employed ED ROS GENERAL - Review of Systems Review Of Systems: See Below Constitutional: Reports: No Symptoms HEENT: Reports: No Symptoms Respiratory: Reports: No Symptoms Cardiovascular: Reports: No Symptoms Endocrine: Reports: No Symptoms GI/Abdominal: Reports: No Symptoms : Reports: No Symptoms Musculoskeletal: Reports: No Symptoms Skin: Reports: Pruritis (left 2nd & 3rd tip) Neurological: Reports: No Symptoms Psychiatric: Reports: No Symptoms Hematologic/Lymphatic: Reports: No Symptoms Immunologic: Reports: No Symptoms ED EXAM, GENERAL - Physical Exam Exam: See Below Exam Limited By: No Limitations General Appearance: Alert, WD/WN, No Apparent Distress, Other (Complete facial symmetry clear speech. Motion and following commands 100% intact) Nose: Normal Inspection, Normal Mucosa, No Blood Throat/Mouth: Normal Inspection, Normal Lips, Normal Teeth, Normal Gums, Normal Oropharynx, Normal Voice, No Airway Compromise Head: Atraumatic, Normocephalic Neck: Normal Inspection, Supple, Non-Tender, Full Range of Motion Respiratory/Chest: No Respiratory Distress, Lungs Clear, Normal Breath Sounds, No Accessory Muscle Use, Chest Non-Tender Cardiovascular: Normal Peripheral Pulses, Regular Rate, Rhythm, No Edema, No Gallop, No JVD, No Murmur, No Rub Back Exam: Normal Inspection, Full Range of Motion, NT Extremities: Normal Inspection, Normal Range of Motion, Non-Tender, No Pedal Edema Neurological: Alert, Oriented, CN II-XII Intact, Normal Cognition, Normal Gait, Normal Reflexes, No Motor/Sensory Deficits Psychiatric: Normal Affect, Normal Mood Skin Exam: Warm, Dry, Intact, Normal Color, No Rash Lymphatic: No Adenopathy Course - Vital Signs Last Recorded V/S: Last Vital Signs Temp 36.1 C 10/15/17 13:31 Pulse 63 10/15/17 13:31 Resp 20 10/15/17 13:31 BP 155/60 H 10/15/17 13:31 Pulse Ox 96 10/15/17 13:31 Departure - Departure Time of Disposition: 14:14 Disposition: Home, Self-Care 01 Clinical Impression: Dizzy spells - Discharge Information *PRESCRIPTION DRUG MONITORING PROGRAM REVIEWED*: No *COPY OF PRESCRIPTION DRUG MONITORING REPORT IN PATIENT ALYSSA: No Referrals: Idalia Cuellar MD [Primary Care Provider] - Forms: ED Department Discharge Care Plan Goals: Needs to schedule appointment for follow-up as he was requested for July-August appointment scheduling. Needs to increase fluid water specifically on a daily basis. Avoid excess heat and dehydrating activity making sure you're drinking plenty of water when outside. Needs to take medication on a daily basis, scheduled appointment for 1-2 weeks at the clinic for recheck of your cholesterol as well as other laboratory function. Rest today do not overexert in the heat. Call or return if symptoms should recur and persist more than a few seconds. - Problem List & Annotations (1) Dizzy spells SNOMED Code(s): 316897685 Code(s): R42 - DIZZINESS AND GIDDINESS Status: Resolved Priority: Low Current Visit: Yes Annotation/Comment:: Discussed drinking more water along with coffee and other beverages (2) Pruritus SNOMED Code(s): 703461437 Code(s): L29.9 - PRURITUS, UNSPECIFIED Status: Chronic Priority: Low Current Visit: Yes (3) Hypertension SNOMED Code(s): 32813684 Code(s): I10 - ESSENTIAL (PRIMARY) HYPERTENSION Status: Acute Priority: Low Current Visit: No Annotation/Comment:: Since resuming medication today needs to schedule one to two-week appointment for recheck Qualifiers: Hypertension type: essential hypertension Qualified Code(s): I10 - Essential (primary) hypertension (4) Hyperlipidemia SNOMED Code(s): 12852470 Code(s): E78.5 - HYPERLIPIDEMIA, UNSPECIFIED Status: Acute Priority: Low Current Visit: Yes Annotation/Comment:: Since restarting medicine today needs to schedule one to two-week appointment for recheck - Problem List Review Problem List Initiated/Reviewed/Updated: Yes - Assessment/Plan Plan: Needs to schedule appointment for follow-up as he failed he is made Sun[facility] appointment scheduling. Needs to increase fluid water specifically on a daily basis. Avoid excess heat and dehydrating activity making sure you're drinking plenty of water when outside. Needs to take medication on a daily basis, scheduled appointment for 1-2 weeks at the clinic for recheck of your cholesterol as well as other laboratory function. Rest today do not overexert in the heat. Call or return if symptoms should recur and persist more than a few seconds.
== END 2017-10-15 14:25 | disposition home or self-care (01) ==
LOC: KA.ED 13:27
DX: R42 Dizziness and giddiness (principal); I10 Essential (primary) hypertension; E78.00 Pure hypercholesterolemia, unspecified; J44.9 Chronic obstructive pulmonary disease, unspecified; Z79.899 Other long term (current) drug therapy; Z79.82 Long term (current) use of aspirin; Z86.73 Personal history of transient ischemic attack (TIA), and cerebral infarction without residual deficits
CPT/HCPCS: 99283

== ENCOUNTER 2017-12-22 13:39 | Emergency (ER) | payer BC, MEDICAID ==
[2017-12-22 13:58] VITALS: BP 129/71
--- NOTE | 2017-12-22 14:33 | EDM.PDOC ---
ED HPI GENERAL MEDICAL PROBLEM - General Chief Complaint: General Stated Complaint: HOT & COLD FLASHES Time Seen by Provider: 12/22/17 14:10 Source of Information: Reports: Patient - History of Present Illness INITIAL COMMENTS - FREE TEXT/NARRATIVE: 56-year-old male presents emergency room today with complaints of just feeling hot and cold today. He has not tried anything for this symptoms. He denies any significant headaches, cough, fever. He's not having any abdominal complaints, no nausea or vomiting no diarrhea complaints. He is not having any chest pain or shortness of breath he denies sore throat or ear pain. He is a frequent visitor in the emergency room. He is poorly dressed and hygiene is poor. Onset: Today Onset Date: 12/22/17 Duration: Hour(s): Location: Reports: Generalized Improves with: Reports: None Worsens with: Reports: None Associated Symptoms: Reports: No Other Symptoms denies pain Pain Score (Numeric/FACES): 0 - Related Data Allergies Allergy/AdvReac Type Severity Reaction Status Date / Time No Known Drug Allergies Allergy Other Verified 12/22/17 13:59 Home Meds: Home Meds Albuterol [Ventolin HFA] 2 puff INH Q4H PRN 03/27/17 [History] Aspirin [Rob Chewable Aspirin] 81 mg PO DAILY 06/09/17 [History] atorvaSTATin [Lipitor] 40 mg PO DAILY 06/09/17 [History] Lisinopril 10 mg PO DAILY 07/15/17 [History] Fluticasone Propionate [Flovent HFA] 2 puff INH BID PRN 10/15/17 [History] Past Medical History - Past Health History Medical/Surgical History: Denies Medical/Surgical History HEENT History: Reports: Hard of Hearing, Impaired Vision, Other (See Below) Other HEENT History: 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 Respiratory History: Reports: COPD Gastrointestinal History: Reports: Colon Polyp Other Gastrointestinal History: Multiple polypectomies of unknown type as below Genitourinary History: Reports: None Musculoskeletal History: Reports: Arthritis, Back Pain, Chronic, Fracture, Osteoarthritis, Other (See Below) Other Musculoskeletal History: Right ankle fracture in 1989, spina bifida occulta in L5-S1 region Neurological History: Reports: CVA, Headaches, Chronic, Other (See Below) Other Neuro History: Chronic tension headaches which occur about every 3 months with previous negative CT scan of the head Psychiatric History: Reports: None Endocrine/Metabolic History: Reports: None Hematologic History: Reports: None Immunologic History: Reports: None Oncologic (Cancer) History: Reports: None Dermatologic History: Reports: None - Infectious Disease History Infectious Disease History: Reports: None Other Infectious Disease History: does not think that he did. - Past Surgical History HEENT Surgical History: Reports: Adenoidectomy, Oral Surgery, Tonsillectomy GI Surgical History: Reports: Appendectomy, Colonoscopy, Polypectomy - Past Imaging History Past Imaging History: Reports: CAT Scan Social & Family History - Family History Family Medical History: Noncontributory Cardiac: Reports: Bypass Endocrine/Metabolic: Reports: IDDM - Tobacco Use Smoking Status *Q: Former Smoker Used Tobacco, but Quit: Yes Month/Year Tobacco Last Used: 2013 Second Hand Smoke Exposure: No - Caffeine Use Caffeine Use: Reports: Coffee, Soda, Tea - Recreational Drug Use Recreational Drug Use: No - Living Situation & Occupation Living situation: Reports: , Alone Occupation: Employed ED ROS GENERAL - Review of Systems Review Of Systems: See Below Constitutional: Reports: Chills. Denies: Fever HEENT: Reports: Glasses Respiratory: Denies: Shortness of Breath Cardiovascular: Denies: Chest Pain, Lightheadedness Endocrine: Denies: Fatigue GI/Abdominal: Denies: Abdominal Pain, Nausea, Vomiting Musculoskeletal: Reports: No Symptoms Skin: Reports: No Symptoms Neurological: Denies: Headache Psychiatric: Reports: No Symptoms Hematologic/Lymphatic: Reports: No Symptoms Immunologic: Reports: No Symptoms ED EXAM, GENERAL - Physical Exam Exam: See Below Exam Limited By: No Limitations General Appearance: Alert, WD/WN, No Apparent Distress, Other (unclean, poor hygiene) Eye Exam: Bilateral Eye: EOMI, PERRL Ears: Normal External Exam, Normal TMs Nose: Normal Inspection Throat/Mouth: Normal Inspection, Normal Oropharynx, Normal Voice Head: Atraumatic, Normocephalic Neck: Normal Inspection, Supple, Non-Tender, Full Range of Motion. No: Lymphadenopathy (L), Lymphadenopathy (R) Respiratory/Chest: No Respiratory Distress, Lungs Clear, Normal Breath Sounds, No Accessory Muscle Use Cardiovascular: Normal Peripheral Pulses, Regular Rate, Rhythm, No Edema GI/Abdominal: Soft, Non-Tender Extremities: Normal Inspection Neurological: Alert, Oriented, No Motor/Sensory Deficits Psychiatric: Normal Affect, Depressed Mood Skin Exam: Warm, Dry, Intact, Normal Color, No Rash Lymphatic: No Adenopathy Course - Vital Signs Last Recorded V/S: Last Vital Signs Temp 98 F 12/22/17 13:54 Pulse 94 12/22/17 13:54 Resp 18 12/22/17 13:54 BP 129/71 12/22/17 13:54 Pulse Ox 94 L 12/22/17 13:54 Departure - Departure Time of Disposition: 14:31 Disposition: Home, Self-Care 01 Condition: Good Clinical Impression: Generalized body aches - Discharge Information Instructions: Acetaminophen; Chlorpheniramine; DM; Phenylephrine Effervescent Tablet Referrals: Idalia Cuellar MD [Primary Care Provider] - Forms: ED Department Discharge Additional Instructions: 1. Patient was encouraged to go home take a warm bath or shower. 2. He may take 650 mg 2 up to 1000 mg of Tylenol every 6 hours as needed for his aches. 3. Encouraged him to rest the rest of the weekend 4. Encouraged him to drink plenty of clear fluids. 5. Follow-up with his primary care if not feeling better next week. - Assessment/Plan Assessment:: Generalized body ache Plan: 1. Patient was encouraged to go home take a warm bath or shower. 2. He may take 650 mg 2 up to 1000 mg of Tylenol every 6 hours as needed for his aches. 3. Encouraged him to rest the rest of the weekend 4. Encouraged him to drink plenty of clear fluids. 5. Follow-up with his primary care if not feeling better next week.
== END 2017-12-22 14:45 | disposition home or self-care (01) ==
LOC: KA.ED 13:39
DX: R52 Pain, unspecified (principal); I10 Essential (primary) hypertension; Z79.82 Long term (current) use of aspirin; Z87.891 Personal history of nicotine dependence
CPT/HCPCS: 99283

== ENCOUNTER 2018-05-01 15:30 | Emergency (ER) | payer BC, MEDICAID ==
[2018-05-01] MEDS: Albuterol/Ipratropium 3.0-0.5 MG/3 ML Neb Soln NEB ONE (15:58)
--- NOTE | 2018-05-01 16:04 | EDM.PDOC ---
ED HPI GENERAL MEDICAL PROBLEM - General Chief Complaint: Chest Pain Stated Complaint: Left arm tingling Time Seen by Provider: 05/01/18 15:36 Source of Information: Reports: Patient History Limitations: Reports: No Limitations - History of Present Illness INITIAL COMMENTS - FREE TEXT/NARRATIVE: Patient is a 57-year-old gentleman who presents to the emergency department this afternoon with a complaint of left hand tingling. Patient states that he has had this sensation on and off for years. States he also gets intermittent chest discomfort. Patient said that he was carrying 50 pound buckets of seed today and his left shoulder hurts. He says when he does this that his left hand sometimes feels tingly. Patient went to the clinic to ask if his heart could be checked out and the clinic sent patient to the emergency department. Patient states all these sensations have been going on for years and today is no different. Patient denies chest pain currently, shortness of breath, nausea , vomiting, abdominal pain, headache, blurry vision, or fever. Onset: Other (Chronic intermittently) Duration: Chronic Location: Reports: Chest, Upper Extremity, Left Severity: Mild Worsens with: Reports: Movement Associated Symptoms: Reports: No Other Symptoms chest Pain Score (Numeric/FACES): 2 - Related Data Allergies Allergy/AdvReac Type Severity Reaction Status Date / Time No Known Drug Allergies Allergy Other Verified 05/01/18 15:44 Home Meds: Home Meds Albuterol [Ventolin HFA] 2 puff INH Q4H PRN 03/27/17 [History] Aspirin [Rob Chewable Aspirin] 81 mg PO DAILY 06/09/17 [History] atorvaSTATin [Lipitor] 40 mg PO DAILY 06/09/17 [History] Lisinopril 10 mg PO DAILY 07/15/17 [History] Fluticasone Propionate [Flovent HFA] 2 puff INH BID PRN 10/15/17 [History] Past Medical History - Past Health History Medical/Surgical History: Denies Medical/Surgical History HEENT History: Reports: Hard of Hearing, Impaired Vision, Other (See Below) Other HEENT History: 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 Respiratory History: Reports: COPD Gastrointestinal History: Reports: Colon Polyp Other Gastrointestinal History: Multiple polypectomies of unknown type as below Genitourinary History: Reports: None Musculoskeletal History: Reports: Arthritis, Back Pain, Chronic, Fracture, Osteoarthritis, Other (See Below) Other Musculoskeletal History: Right ankle fracture in 1989, spina bifida occulta in L5-S1 region Neurological History: Reports: CVA, Headaches, Chronic, Other (See Below) Other Neuro History: Chronic tension headaches which occur about every 3 months with previous negative CT scan of the head Psychiatric History: Reports: None Endocrine/Metabolic History: Reports: None Hematologic History: Reports: None Immunologic History: Reports: None Oncologic (Cancer) History: Reports: None Dermatologic History: Reports: None - Infectious Disease History Infectious Disease History: Reports: None Other Infectious Disease History: does not think that he did. - Past Surgical History HEENT Surgical History: Reports: Adenoidectomy, Oral Surgery, Tonsillectomy Respiratory Surgical History: Reports: None GI Surgical History: Reports: Appendectomy, Colonoscopy, Polypectomy - Past Imaging History Past Imaging History: Reports: CAT Scan Social & Family History - Family History Family Medical History: Noncontributory Cardiac: Reports: Bypass Endocrine/Metabolic: Reports: IDDM - Tobacco Use Smoking Status *Q: Former Smoker Years of Tobacco use: 35 Packs/Tins Daily: 2 Used Tobacco, but Quit: Yes Month/Year Tobacco Last Used: 03/2013 Second Hand Smoke Exposure: Yes - Caffeine Use Caffeine Use: Reports: Coffee, Soda, Tea - Recreational Drug Use Recreational Drug Use: No - Living Situation & Occupation Living situation: Reports: , Alone Occupation: Employed ED ROS GENERAL - Review of Systems Review Of Systems: ROS reveals no pertinent complaints other than HPI. Constitutional: Reports: No Symptoms HEENT: Reports: No Symptoms Respiratory: Reports: No Symptoms Cardiovascular: Reports: No Symptoms Endocrine: Reports: No Symptoms GI/Abdominal: Reports: No Symptoms : Reports: No Symptoms Musculoskeletal: Reports: Shoulder Pain, Hand Pain Skin: Reports: No Symptoms Neurological: Reports: No Symptoms Psychiatric: Reports: No Symptoms Hematologic/Lymphatic: Reports: No Symptoms Immunologic: Reports: No Symptoms ED EXAM, GENERAL - Physical Exam Exam: See Below Exam Limited By: No Limitations General Appearance: Alert, WD/WN, No Apparent Distress Eye Exam: Bilateral Eye: Normal Inspection Nose: Normal Inspection, Normal Mucosa, No Blood Throat/Mouth: Normal Inspection, Normal Oropharynx, No Airway Compromise Head: Atraumatic, Normocephalic Neck: Normal Inspection, Supple, Non-Tender, Full Range of Motion Respiratory/Chest: No Respiratory Distress, Wheezing (End expiratory) Cardiovascular: Regular Rate, Rhythm, No Murmur, No Rub GI/Abdominal: Normal Bowel Sounds, Soft, Non-Tender, No Organomegaly, No Distention, No Abnormal Bruit, No Mass Back Exam: Normal Inspection. No: CVA Tenderness (L), CVA Tenderness (R) Extremities: Normal Inspection, Normal Range of Motion, No Pedal Edema, Normal Capillary Refill, Arm Pain, Other (Left shoulder tenderness with range of motion. No crepitus, ecchymosis, or erythema noted.) Neurological: Alert, Oriented, CN II-XII Intact, Normal Cognition, No Motor/ Sensory Deficits Psychiatric: Normal Affect, Normal Mood Skin Exam: Warm, Dry, Intact, Normal Color, No Rash Lymphatic: No Adenopathy EKG INTERPRETATION EKG Date: 05/01/18 Time: 16:10 Rhythm: NSR Rate (Beats/Min): 67 Sanger: Normal P-Wave: Present QRS: RBBB ST-T: Normal QT: Normal Comparison: No Change (Previous EKG from 08/03/2017) Course - Vital Signs Last Recorded V/S: Last Vital Signs Temp 98.1 F 05/01/18 15:31 Pulse 74 05/01/18 15:57 Resp 16 05/01/18 15:57 BP 132/51 L 05/01/18 15:57 Pulse Ox 96 05/01/18 15:57 - Orders/Labs/Meds Orders: Active Orders 24 hr Category Date Time Status EKG Documentation Completion [RC] ASDIRECTED Care 05/01/18 15:43 Ordered RT Aerosol Therapy [RC] ASDIRECTED Care 05/01/18 15:43 Ordered EKG 12 Lead [EK] Routine Ther 05/01/18 15:42 Ordered Meds: Medications Discontinued Medications Generic Name Dose Route Start Last Admin Trade Name Freq PRN Reason Stop Dose Admin Albuterol/Ipratropium 3 ml 05/01/18 15:42 Duoneb 3.0-0.5 Mg/3 Ml NEB 05/01/18 15:43 ONETIME ONE - Re-Assessments/Exams Free Text/Narrative Re-Assessment/Exam: 05/01/18 16:28 Discussed case in length with Romel Aleman from [facility]. He was able to access all of patient's records. Patient had a electro physiology study at [facility] in [place] on April 26 and records shows no issues. Patient does have a scheduled follow-up with neuro on May 14 at [facility]. Patient does have a history of cervical radiculopathy affecting left upper extremity. Suspicion for left upper extremity symptom aggravation based on patient carried 50 pound buckets of seed earlier today. EKG assessed today normal sinus rhythm. No chest pain while in ER. Patient will follow-up as scheduled and return to emergency department if symptoms continue or worsen. 05/01/18 16:33 Departure - Departure Time of Disposition: 16:34 Disposition: Home, Self-Care 01 Condition: Good Clinical Impression: Cervical radiculopathy Instructions: Cervical Radiculopathy, [id number] Referrals: Idalia Cuellar MD [Primary Care Provider] - Additional Instructions: Follow-up as scheduled on May 14 with neurology at [facility]. Return to emergency department sooner if symptoms continue or worsen. Take medication as directed. - My Orders Last 24 Hours: My Active Orders 05/01/18 15:42 EKG 12 Lead [EK] Routine 05/01/18 15:43 EKG Documentation Completion [RC] ASDIRECTED RT Aerosol Therapy [RC] ASDIRECTED - Assessment/Plan Last 24 Hours: My Active Orders 05/01/18 15:42 EKG 12 Lead [EK] Routine 05/01/18 15:43 EKG Documentation Completion [RC] ASDIRECTED RT Aerosol Therapy [RC] ASDIRECTED Assessment:: Cervical radiculopathy to left upper extremity Plan: Follow-up at [facility]
[2018-05-01 16:19] VITALS: BP 138/52
== END 2018-05-01 16:40 | disposition home or self-care (01) ==
LOC: KA.ED 15:30
DX: M54.12 Radiculopathy, cervical region (principal); I10 Essential (primary) hypertension; J44.9 Chronic obstructive pulmonary disease, unspecified; Z87.891 Personal history of nicotine dependence; Z79.82 Long term (current) use of aspirin
CPT/HCPCS: 93005; 94640; 99284; J7620-GY

== ENCOUNTER 2018-09-22 03:52 | Emergency (ER) | payer BC, MEDICAID ==
[2018-09-22 04:07] VITALS: BP 134/50
[2018-09-22] MEDS ORDERED: Ketorolac 60 MG/2 ML SDV IM ONE (04:17)
--- NOTE | 2018-09-22 04:23 | EDM.PDOC ---
ED HPI GENERAL MEDICAL PROBLEM - General Chief Complaint: Headache Stated Complaint: headache, nausea Time Seen by Provider: 09/22/18 04:16 Source of Information: Reports: Patient History Limitations: Reports: No Limitations - History of Present Illness INITIAL COMMENTS - FREE TEXT/NARRATIVE: Patient is a 57-year-old gentleman who presents to the emergency Department this morning with a complaint of headache. Patient states that headaches have been intermittent for a few days, took aspirin at 1400 yesterday with some relief, but had a headache again this morning and decided to present to ER. Headache described as pressure, typical tension headache for patient, and no specific region of the scalp. Patient denies fever, trauma, blurry vision, facial numbness or tingling, nausea, vomiting, diarrhea, chest pain, shortness of breath, upper respiratory symptoms, or any near syncopal events. Onset: Gradual Duration: Day(s): Location: Reports: Head Quality: Reports: Pressure Severity: Mild Improves with: Reports: None Worsens with: Reports: None Context: Denies: Trauma Associated Symptoms: Reports: Headaches. Denies: Chest Pain, Fever/Chills, Nausea/Vomiting, Shortness of Breath, Syncope headache Pain Score (Numeric/FACES): 5 - Related Data Allergies Allergy/AdvReac Type Severity Reaction Status Date / Time No Known Drug Allergies Allergy Other Verified 09/22/18 03:55 Home Meds: Home Meds Albuterol [Ventolin HFA] 2 puff INH Q4H PRN 03/27/17 [History] Aspirin [Rob Chewable Aspirin] 81 mg PO DAILY 06/09/17 [History] atorvaSTATin [Lipitor] 40 mg PO DAILY 06/09/17 [History] Lisinopril 10 mg PO DAILY 07/15/17 [History] Fluticasone Propionate [Flovent HFA] 2 puff INH BID PRN 10/15/17 [History] Past Medical History - Past Health History Medical/Surgical History: Denies Medical/Surgical History HEENT History: Reports: Hard of Hearing, Impaired Vision, Other (See Below) Other HEENT History: 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 Respiratory History: Reports: COPD Gastrointestinal History: Reports: Colon Polyp Other Gastrointestinal History: Multiple polypectomies of unknown type as below Genitourinary History: Reports: None Musculoskeletal History: Reports: Arthritis, Back Pain, Chronic, Fracture, Osteoarthritis, Other (See Below) Other Musculoskeletal History: Right ankle fracture in 1989, spina bifida occulta in L5-S1 region Neurological History: Reports: CVA, Headaches, Chronic, Other (See Below) Other Neuro History: Chronic tension headaches which occur about every 3 months with previous negative CT scan of the head Psychiatric History: Reports: None Endocrine/Metabolic History: Reports: None Hematologic History: Reports: None Immunologic History: Reports: None Oncologic (Cancer) History: Reports: None Dermatologic History: Reports: None - Infectious Disease History Infectious Disease History: Reports: None Other Infectious Disease History: does not think that he did. - Past Surgical History HEENT Surgical History: Reports: Adenoidectomy, Oral Surgery, Tonsillectomy Respiratory Surgical History: Reports: None GI Surgical History: Reports: Appendectomy, Colonoscopy, Polypectomy - Past Imaging History Past Imaging History: Reports: CAT Scan Social & Family History - Family History Family Medical History: Noncontributory Cardiac: Reports: Bypass Endocrine/Metabolic: Reports: IDDM - Tobacco Use Smoking Status *Q: Former Smoker Used Tobacco, but Quit: Yes Month/Year Tobacco Last Used: 03/26/2013 - Caffeine Use Caffeine Use: Reports: Coffee, Soda, Tea - Recreational Drug Use Recreational Drug Use: No - Living Situation & Occupation Living situation: Reports: , Alone Occupation: Employed ED ROS GENERAL - Review of Systems Review Of Systems: ROS reveals no pertinent complaints other than HPI. Constitutional: Reports: No Symptoms HEENT: Reports: No Symptoms Respiratory: Reports: No Symptoms Cardiovascular: Reports: No Symptoms Endocrine: Reports: No Symptoms GI/Abdominal: Reports: No Symptoms : Reports: No Symptoms Musculoskeletal: Reports: No Symptoms Skin: Reports: No Symptoms Neurological: Reports: Headache Psychiatric: Reports: No Symptoms Hematologic/Lymphatic: Reports: No Symptoms Immunologic: Reports: No Symptoms - Physical Exam Exam: See Below Exam Limited By: No Limitations General Appearance: Alert, WD/WN, No Apparent Distress Eye Exam: Bilateral Eye: Normal Inspection Ears: Normal External Exam, Normal Canal, Normal TMs Nose: Normal Inspection, Normal Mucosa, No Blood Throat/Mouth: Normal Inspection, Normal Oropharynx, No Airway Compromise Head Exam: Atraumatic, Normocephalic Neck: Normal Inspection, Supple, Non-Tender. No: Lymphadenopathy (L), Lymphadenopathy (R) Respiratory/Chest: No Respiratory Distress, Lungs Clear, Normal Breath Sounds, No Accessory Muscle Use, Chest Non-Tender Cardiovascular: Regular Rate, Rhythm, No Murmur GI/Abdominal: Normal Bowel Sounds, Soft, Non-Tender Neuro Exam (Abbreviated): Alert, Oriented, CN II-XII Intact, Normal Cognition, No Motor/Sensory Deficits, Other (, No neuro focal deficits noted) Extremities: Normal Inspection, No Pedal Edema Psychiatric: Normal Affect, Normal Mood Skin Exam: Warm, Dry, Intact, Normal Color, No Rash Course - Vital Signs Last Recorded V/S: Last Vital Signs Temp 97.1 F 09/22/18 03:52 Pulse 55 L 09/22/18 03:52 Resp 14 09/22/18 03:52 BP 134/50 L 09/22/18 03:52 Pulse Ox 96 09/22/18 03:52 - Orders/Labs/Meds Orders: Active Orders 24 hr Category Date Time Status Ketorolac [Toradol] Med 09/22/18 04:17 Once 60 mg IM ONETIME ONE - Re-Assessments/Exams Free Text/Narrative Re-Assessment/Exam: 09/22/18 04:30 Patient afebrile, vital signs stable, 60 mg Toradol IM given. Headache mostly relieved. No neuro focal deficits. Patient will follow-up with PCP Departure - Departure Time of Disposition: 04:31 Disposition: Home, Self-Care 01 Condition: Good Clinical Impression: Headache Qualifiers: Headache type: tension-type Headache chronicity pattern: acute headache Intractability: not intractable Qualified Code(s): G44.209 - Tension-type headache, unspecified, not intractable - Discharge Information Instructions: General Headache Without Cause, [id number] Additional Instructions: Follow-up with PCP. Return to emergency department if symptoms continue or worsen. - My Orders Last 24 Hours: My Active Orders 09/22/18 04:17 Ketorolac [Toradol] 60 mg IM ONETIME ONE - Assessment/Plan Last 24 Hours: My Active Orders 09/22/18 04:17 Ketorolac [Toradol] 60 mg IM ONETIME ONE Assessment:: Headache Plan: Follow-up with PCP
== END 2018-09-22 04:35 | disposition home or self-care (01) ==
LOC: KA.ED 03:52
DX: G44.209 Tension-type headache, unspecified, not intractable (principal); I10 Essential (primary) hypertension; J44.9 Chronic obstructive pulmonary disease, unspecified; M19.90 Unspecified osteoarthritis, unspecified site; Z90.49 Acquired absence of other specified parts of digestive tract; Z79.82 Long term (current) use of aspirin; Z79.899 Other long term (current) drug therapy; Z86.73 Personal history of transient ischemic attack (TIA), and cerebral infarction without residual deficits; Z98.890 Other specified postprocedural states; Z87.891 Personal history of nicotine dependence
CPT/HCPCS: 96372; 99283; J1885

== ENCOUNTER 2019-05-18 04:48 | Emergency (ER) | payer BC, MEDICAID, OTHER ==
--- NOTE | 2019-05-18 05:05 | EDM.PDOC ---
ED HPI GENERAL MEDICAL PROBLEM - General Chief Complaint: General Stated Complaint: Abdominal pain Time Seen by Provider: 05/18/19 05:05 Source of Information: Reports: Patient History Limitations: Reports: No Limitations - History of Present Illness INITIAL COMMENTS - FREE TEXT/NARRATIVE: Woke this morning with nausea and one emesis. Has body aches occasional drainage in his throat with cough. Low-grade fever if any. Has felt different for one day with this morning was true onset of major concern for evaluation. Is not using bronchodilator therapy as he states he cannot afford it now that is been laid off. Albuterol and Pulmicort cussing over $300. Onset: Today Duration: Hour(s):, Constant Location: Reports: Head, Abdomen Quality: Reports: Ache Severity: Moderate Improves with: Reports: None Context: Reports: Sick Contact Associated Symptoms: Reports: No Other Symptoms - Related Data Allergies Allergy/AdvReac Type Severity Reaction Status Date / Time No Known Drug Allergies Allergy Other Verified 05/18/19 04:55 Home Meds: Home Meds Albuterol [Ventolin HFA] 2 puff INH Q4H PRN 03/27/17 [History] Aspirin [Rob Chewable Aspirin] 81 mg PO DAILY 06/09/17 [History] atorvaSTATin [Lipitor] 40 mg PO DAILY 06/09/17 [History] Lisinopril 10 mg PO DAILY 07/15/17 [History] Fluticasone Propionate [Flovent HFA] 2 puff INH BID PRN 10/15/17 [History] Doxycycline Hyclate 100 mg PO Q12HR 6 Days #12 capsule 05/18/19 [Rx] Past Medical History HEENT History: Reports: Hard of Hearing, Impaired Vision, Other (See Below) Other HEENT History: 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 Respiratory History: Reports: COPD Gastrointestinal History: Reports: Colon Polyp Other Gastrointestinal History: Multiple polypectomies of unknown type as below Genitourinary History: Reports: None Musculoskeletal History: Reports: Arthritis, Back Pain, Chronic, Fracture, Osteoarthritis, Other (See Below) Other Musculoskeletal History: Right ankle fracture in 1989, spina bifida occulta in L5-S1 region Neurological History: Reports: CVA, Headaches, Chronic, Other (See Below) Other Neuro History: Chronic tension headaches which occur about every 3 months with previous negative CT scan of the head Psychiatric History: Reports: None Endocrine/Metabolic History: Reports: None Hematologic History: Reports: None Immunologic History: Reports: None Oncologic (Cancer) History: Reports: None Dermatologic History: Reports: None - Infectious Disease History Infectious Disease History: Reports: None Other Infectious Disease History: does not think that he did. - Past Surgical History HEENT Surgical History: Reports: Adenoidectomy, Oral Surgery, Tonsillectomy Respiratory Surgical History: Reports: None GI Surgical History: Reports: Appendectomy, Colonoscopy, Polypectomy - Past Imaging History Past Imaging History: Reports: CAT Scan Social & Family History - Family History Family Medical History: Noncontributory Cardiac: Reports: Bypass Endocrine/Metabolic: Reports: IDDM - Caffeine Use Caffeine Use: Reports: Coffee, Soda, Tea - Living Situation & Occupation Living situation: Reports: , Alone Occupation: Employed ED ROS GENERAL - Review of Systems Review Of Systems: See Below Constitutional: Reports: Malaise. Denies: Chills HEENT: Reports: Throat Pain Respiratory: Reports: Cough Cardiovascular: Reports: No Symptoms Endocrine: Reports: No Symptoms GI/Abdominal: Reports: Abdominal Pain, Constipation (Anticonstipation using MiraLAX or other forms of stool softener every other day), Nausea : Reports: No Symptoms Musculoskeletal: Reports: No Symptoms Skin: Reports: No Symptoms Neurological: Reports: No Symptoms Psychiatric: Reports: Anxiety Hematologic/Lymphatic: Reports: No Symptoms Immunologic: Reports: No Symptoms ED EXAM, GENERAL - Physical Exam Exam: See Below Exam Limited By: No Limitations General Appearance: Alert, WD/WN, No Apparent Distress, Anxious Ears: Normal External Exam, Normal Canal, Hearing Grossly Normal, Normal TMs Nose: Normal Inspection, Normal Mucosa, No Blood Throat/Mouth: Normal Inspection, Normal Lips, Normal Teeth, Normal Gums, Normal Oropharynx, Normal Voice, No Airway Compromise Head: Atraumatic, Normocephalic Neck: Normal Inspection Respiratory/Chest: No Respiratory Distress, Normal Breath Sounds, No Accessory Muscle Use (Basis), Chest Non-Tender, Rhonchi Cardiovascular: Normal Peripheral Pulses, Regular Rate, Rhythm, No Edema, No Gallop, No JVD, No Murmur, No Rub GI/Abdominal: Normal Bowel Sounds, Soft, Non-Tender, No Organomegaly, No Distention (Male) Exam: Deferred Rectal (Males) Exam: Deferred Back Exam: Normal Inspection, Full Range of Motion, NT Extremities: Normal Inspection, Normal Range of Motion, Non-Tender, Normal Capillary Refill, No Pedal Edema Neurological: Alert, Oriented, CN II-XII Intact, Normal Cognition, Normal Gait, Normal Reflexes, No Motor/Sensory Deficits Psychiatric: Anxious Skin Exam: Warm, Dry, Intact, Normal Color, No Rash Lymphatic: No Adenopathy Course - Vital Signs Last Recorded V/S: Last Vital Signs Temp 36.2 C 05/18/19 05:00 Pulse 90 05/18/19 05:00 Resp 18 05/18/19 05:00 BP 143/82 H 05/18/19 05:00 Pulse Ox 92 L 05/18/19 05:00 - Orders/Labs/Meds Orders: Active Orders 24 hr Category Date Time Status Chest 2V [CR] Stat Exams 05/18/19 05:20 Ordered Labs: Laboratory Tests 05/18/19 05/18/19 Range/Units 04:55 04:55 WBC 14.44 H (5.00-10.00) 10^3/uL RBC 4.99 (4.50-6.00) 10^6/uL Hgb 15.5 (13.0-17.0) g/dL Hct 46.4 (40.0-52.0) % MCV 93.0 H (82.0-92.0) fL MCH 31.1 H (27.0-31.0) pg MCHC 33.4 (32.0-36.0) g/dL RDW 11.7 (11.5-14.5) % Plt Count 215 (150-400) 10^3/uL MPV 9.5 (7.4-10.4) fL Immature Gran % (Auto) 0.1 (0.0-5.0) % Neut % (Auto) 89.1 H (50.0-70.0) % Lymph % (Auto) 3.9 L (20.0-40.0) % [place] % (Auto) 6.7 (2.0-8.0) % Eos % (Auto) 0.1 L (1.0-3.0) % Baso % (Auto) 0.1 (0.0-1.0) % Immature Gran # (Auto) 0.02 (0.00-0.50) 10^3/uL Neut # (Auto) 12.86 H (2.50-7.00) 10^3/uL Lymph # (Auto) 0.56 L (1.00-4.00) 10^3/uL [place] # (Auto) 0.97 H (0.10-0.80) 10^3/uL Eos # (Auto) 0.01 L (0.10-0.30) 10^3/uL Baso # (Auto) 0.02 (0.00-0.10) 10^3/uL Sodium 141 (136-145) mmol/L Potassium 4.3 (3.3-5.3) mmol/L Chloride 104 (98-115) mmol/L Carbon Dioxide 27.4 (21.0-32.0) mmol/L Anion Gap 13.9 (5-15) mmol/L BUN 21 (6-25) mg/dL Creatinine 1.01 (0.51-1.17) mg/dL Est Cr Clr Drug Dosing 62.60 mL/min Estimated GFR (MDRD) > 60 mL/min Glucose 173 H (75 - 99) mg/dL Calcium 7.8 L (8.7-10.3) mg/dL Total Bilirubin 0.6 (0.2-1.0) mg/dL AST 22 (15-37) U/L ALT 23 (12-78) U/L Alkaline Phosphatase 133 H (46-116) IU/L Total Protein 6.1 L (6.4-8.2) g/dL Albumin 3.33 (3.00-4.80) g/dL Meds: Medications Discontinued Medications Generic Name Dose Route Start Last Admin Trade Name Freq PRN Reason Stop Dose Admin Doxycycline Hyclate 100 mg 05/18/19 06:00 05/18/19 06:12 Vibramycin PO 05/18/19 06:01 100 mg ONETIME ONE Administration Doxycycline Hyclate 200 mg 05/18/19 06:15 05/18/19 06:12 Vibramycin PO 05/18/19 06:16 200 mg ONETIME ONE Administration Ondansetron HCl 4 mg 05/18/19 05:13 05/18/19 05:27 Zofran IVPUSH 05/18/19 05:14 4 mg ONETIME ONE Administration - Radiology Interpretation Free Text/Narrative:: Two-view chest x-ray showing chronic bronchitic pattern with likely early basilar pneumonitis/pneumonia development. No evidence cardiomegaly. Departure - Departure Time of Disposition: 06:15 Disposition: Home, Self-Care 01 Condition: Good Clinical Impression: COPD (chronic obstructive pulmonary disease), Pneumonitis, Sinusitis chronic, frontal, Anxiety about health - Discharge Information *PRESCRIPTION DRUG MONITORING PROGRAM REVIEWED*: Not Applicable *COPY OF PRESCRIPTION DRUG MONITORING REPORT IN PATIENT ALYSSA: Not Applicable Prescriptions: Doxycycline Hyclate 100 mg PO Q12HR 6 Days #12 capsule Instructions: Cough, Adult, [id number] Forms: ED Department Discharge Additional Instructions: Doxycycline, 100 mg to be taken twice daily roughly every 12 hours for 7 days. Continue your other medications as directed. Increase her water intake to make sure he stay well-hydrated. Try find sugar-free cough drops as your blood sugar was elevated this morning secondary of which you have been using. You will be provided with the start of your antibiotic, with a prescription to be picked up at the pharmacy Sunday for the remainder of treatment. Call the clinic on Sunday to get an appointment for later in the week for recheck, and discussion on medication options. Sepsis Event Note - Focused Exam Vital Signs: Vital Signs Temp Pulse Resp BP Pulse Ox 05/18/19 05:00 36.2 C 90 18 143/82 H 92 L Date Exam was Performed: 05/18/19 Time Exam was Performed: 06:23 - Problem List & Annotations (1) Cough in adult SNOMED Code(s): 16312305 Code(s): R05 - COUGH Status: Acute Priority: High (2) Hypertension SNOMED Code(s): 05296172 Code(s): I10 - ESSENTIAL (PRIMARY) HYPERTENSION Status: Chronic Priority : Medium Qualifiers: Hypertension type: essential hypertension Qualified Code(s): I10 - Essential (primary) hypertension (3) Generalized body aches SNOMED Code(s): 22626256 Code(s): R52 - PAIN, UNSPECIFIED Status: Acute Priority: Medium (4) Headache SNOMED Code(s): 18305582 Code(s): R51 - HEADACHE Status: Acute Priority: Medium Qualifiers: Headache type: tension-type Headache chronicity pattern: acute headache Intractability: not intractable Qualified Code(s): G44.209 - Tension-type headache, unspecified, not intractable (5) COPD (chronic obstructive pulmonary disease) SNOMED Code(s): 98271062 Code(s): J44.9 - CHRONIC OBSTRUCTIVE PULMONARY DISEASE, UNSPECIFIED Status : Chronic Priority: Medium Annotation/Comment:: cough bronchitic-type symptoms. Qualifiers: COPD type: emphysema Emphysema type: panlobular Qualified Code(s): J43.1 - Panlobular emphysema (6) Nausea SNOMED Code(s): 455163777 Code(s): R11.0 - NAUSEA Status: Acute Priority: Medium (7) Sinusitis chronic, frontal SNOMED Code(s): 56461956 Code(s): J32.1 - CHRONIC FRONTAL SINUSITIS Status: Acute (8) Pneumonitis SNOMED Code(s): 933042380 Code(s): J18.9 - PNEUMONIA, UNSPECIFIED ORGANISM Status: Acute - Problem List Review Problem List Initiated/Reviewed/Updated: Yes - My Orders Last 24 Hours: My Active Orders 05/18/19 05:20 Chest 2V [CR] Stat - Assessment/Plan Last 24 Hours: My Active Orders 05/18/19 05:20 Chest 2V [CR] Stat Plan: Doxycycline, 100 mg to be taken twice daily roughly every 12 hours for 7 days. Continue your other medications as directed. Increase her water intake to make sure he stay well-hydrated. Try find sugar-free cough drops as your blood sugar was elevated this morning secondary of which you have been using. You will be provided with the start of your antibiotic, with a prescription to be picked up at the pharmacy Sunday for the remainder of treatment. Call the clinic on Sunday to get an appointment for later in the week for recheck, and discussion on medication options.
[2019-05-18 05:11] VITALS: BP 143/82; PULSE 90
[2019-05-18] MEDS ORDERED: Ondansetron 4 MG/2 ML SDV IVPUSH ONE (05:13)
[2019-05-18 05:34] LABS: ANION GAP 13.9 mmol/L (5-15); CHLORIDE,CL 104 mmol/L (98-115); SODIUM,NA 141 mmol/L (136-145)
--- NOTE | 2019-05-18 09:21 | CR ---
[id number] RAD/RAD Chest PA And Lateral EXAM: RAD Chest PA And Lateral INDICATION: COUGH , ELEVATED WBC COMPARISON: August 03, 2017. DISCUSSION: Cardiomediastinal silhouette is normal in size and contour. Left basilar pulmonary infiltrate. No pneumothorax or pleural effusion. IMPRESSION: Left basilar pulmonary infiltrate. Ebenezer Simpson DO 05/18/19 0920 Thank you for allowing us to participate in the care of your patient.
== END 2019-05-18 06:20 | disposition home or self-care (01) ==
LOC: KA.ED 04:48
DX: J44.9 Chronic obstructive pulmonary disease, unspecified (principal); J18.9 Pneumonia, unspecified organism; J32.1 Chronic frontal sinusitis; F41.9 Anxiety disorder, unspecified; I10 Essential (primary) hypertension; E78.00 Pure hypercholesterolemia, unspecified; Z86.73 Personal history of transient ischemic attack (TIA), and cerebral infarction without residual deficits; Z79.82 Long term (current) use of aspirin; Z79.899 Other long term (current) drug therapy
CPT/HCPCS: 36415; 71046; 80053; 85025; 87804; 96374; 99284; A9270; J2405

== ENCOUNTER 2019-12-04 13:55 | Emergency (ER) | payer BC, MEDICAID ==
--- NOTE | 2019-12-04 14:14 | EDM.PDOC ---
ED HPI GENERAL MEDICAL PROBLEM - General Chief Complaint: Headache Stated Complaint: headache Time Seen by Provider: 12/04/19 14:03 Source of Information: Reports: Patient History Limitations: Reports: No Limitations - History of Present Illness INITIAL COMMENTS - FREE TEXT/NARRATIVE: 58 YO WM PRESENTS TO ER WITH RIGHT SIDED HEADACHE WHICH BEGAN THIS AM. PT REPORTS HISTORY OF FREQUENT HEADACHES THAT TEND TO "STICK AROUND" FOR DAYS. PT REPORTS HE TYPICALLY WILL COME TO ER FOR "SHOTS" AND IT HELPS. PT REPORTS HISTORY OF HYPERTENSION BUT STATES HE HAS BEEN TAKING HIS BP MEDICATION PRESCRIBED. PT REPORTS BP HAS BEEN WELL CONTROLLED. PT REPORTS ASSOCIATED NAUSEA WITHOUT VOMITING. PT DENIES FEVER/CHILLS, NO COUGH/CONGESTION, NO SHORTNESS OF BREATH OR CHEST PAIN. PT IN NAD, ALERT AND ORIENTED X 4, GCS-15. Onset: Today Location: Reports: Head Quality: Reports: Ache Severity: Moderate Improves with: Reports: None Worsens with: Reports: None Associated Symptoms: Reports: No Other Symptoms - Related Data Allergies Allergy/AdvReac Type Severity Reaction Status Date / Time No Known Drug Allergies Allergy Other Verified 12/04/19 14:19 Home Meds: Home Meds Albuterol [Ventolin HFA] 2 puff INH Q4H PRN 03/27/17 [History] Aspirin [Rob Chewable Aspirin] 81 mg PO DAILY 06/09/17 [History] atorvaSTATin [Lipitor] 40 mg PO DAILY 06/09/17 [History] Lisinopril 10 mg PO DAILY 07/15/17 [History] Fluticasone Propionate [Flovent HFA] 2 puff INH BID PRN 10/15/17 [History] Doxycycline Hyclate 100 mg PO Q12HR 6 Days #12 capsule 05/18/19 [Rx] Past Medical History - Past Health History Medical/Surgical History: Denies Medical/Surgical History HEENT History: Reports: Hard of Hearing, Impaired Vision, Other (See Below) Other HEENT History: 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 Respiratory History: Reports: COPD Gastrointestinal History: Reports: Colon Polyp Other Gastrointestinal History: Multiple polypectomies of unknown type as below Genitourinary History: Reports: None Musculoskeletal History: Reports: Arthritis, Back Pain, Chronic, Fracture, Osteoarthritis, Other (See Below) Other Musculoskeletal History: Right ankle fracture in 1989, spina bifida occu lta in L5-S1 region Neurological History: Reports: CVA, Headaches, Chronic, Other (See Below) Other Neuro History: Chronic tension headaches which occur about every 3 months with previous negative CT scan of the head Psychiatric History: Reports: None Endocrine/Metabolic History: Reports: None Hematologic History: Reports: None Immunologic History: Reports: None Oncologic (Cancer) History: Reports: None Dermatologic History: Reports: None - Infectious Disease History Infectious Disease History: Reports: None Other Infectious Disease History: does not think that he did. - Past Surgical History HEENT Surgical History: Reports: Adenoidectomy, Oral Surgery, Tonsillectomy Respiratory Surgical History: Reports: None GI Surgical History: Reports: Appendectomy, Colonoscopy, Polypectomy - Past Imaging History Past Imaging History: Reports: CAT Scan Social & Family History - Family History Family Medical History: Noncontributory Cardiac: Reports: Bypass Endocrine/Metabolic: Reports: IDDM - Caffeine Use Caffeine Use: Reports: Coffee, Soda, Tea - Living Situation & Occupation Living situation: Reports: , Alone Occupation: Employed ED ROS GENERAL - Review of Systems Review Of Systems: See Below Constitutional: Reports: No Symptoms HEENT: Reports: No Symptoms Respiratory: Reports: No Symptoms Cardiovascular: Reports: No Symptoms Endocrine: Reports: No Symptoms GI/Abdominal: Reports: No Symptoms : Reports: No Symptoms Musculoskeletal: Reports: No Symptoms Skin: Reports: No Symptoms Neurological: Reports: Headache. Denies: Confusion, Dizziness, Seizure, Syncope, Trouble Speaking, Difficulty Walking, Weakness, Change in Speech, Gait Disturbance Psychiatric: Reports: No Symptoms Hematologic/Lymphatic: Reports: No Symptoms Immunologic: Reports: No Symptoms - Physical Exam Exam: See Below Exam Limited By: No Limitations General Appearance: Alert, WD/WN, No Apparent Distress Eye Exam: Bilateral Eye: EOMI, PERRL Throat/Mouth: Normal Inspection, Normal Lips, Normal Teeth, Normal Gums, Normal Oropharynx, Normal Voice, No Airway Compromise Head Exam: Atraumatic, Normocephalic Neck: Normal Inspection, Supple, Non-Tender, Full Range of Motion Respiratory/Chest: No Respiratory Distress, Lungs Clear, Normal Breath Sounds, No Accessory Muscle Use, Chest Non-Tender Cardiovascular: Normal Peripheral Pulses, Regular Rate, Rhythm, No Edema, No Gallop, No JVD, No Murmur, No Rub GI/Abdominal: Normal Bowel Sounds, Soft, Non-Tender, No Organomegaly, No Distention, No Abnormal Bruit, No Mass Neuro Exam (Abbreviated): Alert, Oriented, CN II-XII Intact, Normal Cognition, Normal Gait, Normal Reflexes, No Motor/Sensory Deficits Extremities: Normal Inspection, Normal Range of Motion, Non-Tender, No Pedal Edema, Normal Capillary Refill Psychiatric: Normal Affect, Normal Mood Skin Exam: Warm, Dry, Intact, Normal Color, No Rash Departure - Departure Time of Disposition: 14:37 Disposition: Home, Self-Care 01 Condition: Good Clinical Impression: Headache Qualifiers: Headache type: unspecified Headache chronicity pattern: acute headache Intractability: not intractable Qualified Code(s): R51 - Headache - Discharge Information Instructions: General Headache Without Cause, [id number] Referrals: Romel Aleman BRAND COORDINATOR [Primary Care Provider] - Forms: ED Department Discharge Additional Instructions: 1. DISCHARGE HOME 2. PLENTY OF FLUIDS 3. REST/TYLENOL 1000MG/BENADRYL 50MG EVERY 6 HOURS NEEDED IF HEADACHE RETURNS 4. FOLLOW UP IN CLINIC FOR FURTHER EVALUATION AND TREATMENT OF HEADACHES 5. RETURN TO ER FOR WORSENING SYMPTOMS - Assessment/Plan Assessment:: 1. HEADACHE Plan: 1. DISCHARGE HOME 2. PLENTY OF FLUIDS 3. REST/TYLENOL 1000MG/BENADRYL 50MG EVERY 6 HOURS NEEDED IF HEADACHE RETURNS 4. FOLLOW UP IN CLINIC FOR FURTHER EVALUATION AND TREATMENT OF HEADACHES 5. RETURN TO ER FOR WORSENING SYMPTOMS
[2019-12-04 14:19] VITALS: PULSE 53
[2019-12-04] MEDS ORDERED: Metoclopramide 10 MG/2 ML SDV IM ONE (14:20)
[2019-12-04] MEDS ORDERED: Ketorolac 60 MG/2 ML SDV IM ONE (14:20)
== END 2019-12-04 15:00 | disposition home or self-care (01) ==
LOC: KA.ED 13:55
DX: R51 Headache (principal); E78.00 Pure hypercholesterolemia, unspecified; I10 Essential (primary) hypertension; J44.9 Chronic obstructive pulmonary disease, unspecified; M19.90 Unspecified osteoarthritis, unspecified site; Z86.73 Personal history of transient ischemic attack (TIA), and cerebral infarction without residual deficits; Z79.82 Long term (current) use of aspirin; Z79.899 Other long term (current) drug therapy
CPT/HCPCS: 96372; 99283; 99284; J1885; J2765

== ENCOUNTER 2020-02-09 07:59 | Emergency (ER) | payer MEDICAID ==
[2020-02-09 08:10] VITALS: BP 148/76; PULSE 68
--- NOTE | 2020-02-09 08:27 | EDM.PDOC ---
ED HPI GENERAL MEDICAL PROBLEM - General Chief Complaint: General Stated Complaint: COUGH,FEVER,SOB Time Seen by Provider: 02/09/20 08:27 Source of Information: Reports: Patient - History of Present Illness INITIAL COMMENTS - FREE TEXT/NARRATIVE: Tony, 59-year-old male, presents today with concerns of Covid 19. Yesterday while at his employment at the [employer], was sent home by security when he had undergone temperature check partially into his shift. 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 He is been wearing a mask at all times but has had routine exposure risk. Concerned with his history of asthma. Has not had a documented fever other than that. No significant shortness of breath nor major symptoms associated with the COVID-19 pandemic. Is here today for evaluation. And concern as above. Onset Date: 02/08/20 Onset Time: 18:30 Duration: Hour(s): - Related Data Allergies Allergy/AdvReac Type Severity Reaction Status Date / Time No Known Drug Allergies Allergy Other Verified 02/09/20 08:13 Home Meds: Home Meds Albuterol [Ventolin HFA] 2 puff INH Q4H PRN 03/27/17 [History] Aspirin [Rob Chewable Aspirin] 81 mg PO DAILY 06/09/17 [History] atorvaSTATin [Lipitor] 40 mg PO DAILY 06/09/17 [History] Lisinopril 10 mg PO DAILY 07/15/17 [History] Fluticasone/Salmeterol [Advair HFA 230-21 MCG] 2 puff INH BID 02/09/20 [History] Past Medical History - Past Health History Medical/Surgical History: Denies Medical/Surgical History HEENT History: Reports: Hard of Hearing, Impaired Vision, Other (See Below) Other HEENT History: 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 Respiratory History: Reports: COPD Gastrointestinal History: Reports: Colon Polyp Other Gastrointestinal History: Multiple polypectomies of unknown type as below Genitourinary History: Reports: None Musculoskeletal History: Reports: Arthritis, Back Pain, Chronic, Fracture, Osteoarthritis, Other (See Below) Other Musculoskeletal History: Right ankle fracture in 1989, spina bifida occulta in L5-S1 region Neurological History: Reports: CVA, Headaches, Chronic, Other (See Below) Other Neuro History: Chronic tension headaches which occur about every [address] with previous negative CT scan of the head Psychiatric History: Reports: None Endocrine/Metabolic History: Reports: None Hematologic History: Reports: None Immunologic History: Reports: None Oncologic (Cancer) History: Reports: None Dermatologic History: Reports: None - Infectious Disease History Infectious Disease History: Reports: None Other Infectious Disease History: does not think that he did. - Past Surgical History HEENT Surgical History: Reports: Adenoidectomy, Oral Surgery, Tonsillectomy Respiratory Surgical History: Reports: None GI Surgical History: Reports: Appendectomy, Colonoscopy, Polypectomy - Past Imaging History Past Imaging History: Reports: CAT Scan Social & Family History - Family History Family Medical History: No Pertinent Family History Cardiac: Reports: Bypass Endocrine/Metabolic: Reports: IDDM - Caffeine Use Caffeine Use: Reports: Coffee, Soda, Tea - Living Situation & Occupation Living situation: Reports: , Alone Occupation: Employed ED ROS GENERAL - Review of Systems Review Of Systems: See Below Constitutional: Reports: Fever HEENT: Reports: No Symptoms Respiratory: Reports: Shortness of Breath, Cough Cardiovascular: Reports: No Symptoms Endocrine: Reports: No Symptoms GI/Abdominal: Reports: No Symptoms : Reports: No Symptoms Musculoskeletal: Reports: No Symptoms Skin: Reports: No Symptoms Neurological: Reports: No Symptoms Psychiatric: Reports: Anxiety Hematologic/Lymphatic: Reports: No Symptoms Immunologic: Reports: No Symptoms ED EXAM, GENERAL - Physical Exam Exam: See Below Free Text/Narrative:: Alert, oriented, with no cyanosis nor pallor, in no acute distress. HEENT is negative to discharge or deformity. No tenderness to palpation. There is no involvement of the auditory canals nor tympanic membranes. [place] moist mucous membranes with no erythema. PERRLA no icterus no injection glasses present. Neck is soft supple with no lymphadenopathy no JVD. There is no rigidity. Thorax is clear with fine rhonchi, I do not appreciate any wheezes nor crackles. Cardiac is S1-S2 no appreciated murmur. Abdomen is soft bowel sounds present no tenderness to palpation. Right radial pulse is slightly less prominent than the left radial pulse with capillary refill being good to both sides. There is no tenderness or complaint to the pelvics normal lower extremities with no peripheral edema. Course - Vital Signs Last Recorded V/S: Last Vital Signs Temp 37.9 C 02/09/20 08:06 Pulse 68 02/09/20 08:06 Resp 18 02/09/20 08:06 BP 148/76 H 02/09/20 08:06 Pulse Ox 96 02/09/20 08:06 - Orders/Labs/Meds Labs: Laboratory Tests 02/09/20 02/09/20 02/09/20 Range/Units 08:25 08:25 09:25 WBC 5.77 (5.00-10.00) 10^3/uL RBC 4.81 (4.50-6.00) 10^6/uL Hgb 14.9 (13.0-17.0) g/dL Hct 45.0 (40.0-52.0) % MCV 93.6 H (82.0-92.0) fL MCH 31.0 (27.0-31.0) pg MCHC 33.1 (32.0-36.0) g/dL RDW 12.0 (11.5-14.5) % Plt Count 177 (150-400) 10^3/uL MPV 9.9 (7.4-10.4) fL Immature Gran % (Auto) 0.0 (0.0-5.0) % Neut % (Auto) 68.5 (50.0-70.0) % Lymph % (Auto) 13.9 L (20.0-40.0) % [place] % (Auto) 17.3 H (2.0-8.0) % Eos % (Auto) 0.0 L (1.0-3.0) % Baso % (Auto) 0.3 (0.0-1.0) % Neut # (Auto) 3.95 (2.50-7.00) 10^3/uL Lymph # (Auto) 0.80 L (1.00-4.00) 10^3/uL [place] # (Auto) 1.00 H (0.10-0.80) 10^3/uL Eos # (Auto) 0.00 L (0.10-0.30) 10^3/uL Baso # (Auto) 0.02 (0.00-0.10) 10^3/uL Immature Gran # (Auto) 0.00 (0.00-0.50) 10^3/uL Sodium 141 (136-145) mmol/L Potassium 4.0 (3.3-5.3) mmol/L Chloride 104 (98-115) mmol/L Carbon Dioxide 28.5 (21.0-32.0) mmol/L Anion Gap 12.5 (5-15) mmol/L BUN 14 (6-25) mg/dL Creatinine 1.02 (0.51-1.17) mg/dL Est Cr Clr Drug Dosing 61.21 mL/min Estimated GFR (MDRD) > 60 mL/min Glucose 108 H (75 - 99) mg/dL Lactic Acid 0.8 (0.4-2.0) mmol/L Calcium 7.9 L (8.7-10.3) mg/dL Total Bilirubin 0.4 (0.2-1.0) mg/dL AST 14 L (15-37) U/L ALT 13 (12-78) U/L Alkaline Phosphatase 124 H (46-116) IU/L Total Protein 6.1 L (6.4-8.2) g/dL Albumin 3.39 (3.00-4.80) g/dL - Radiology Interpretation Free Text/Narrative:: Chest x-ray reveals no acute infiltrate no cardiomegaly. Over read pending Departure - Departure Time of Disposition: 10:02 Disposition: Home, Self-Care 01 Condition: Good Clinical Impression: Fever Qualifiers: Fever type: unspecified Qualified Code(s): R50.9 - Fever, unspecified - Discharge Information *PRESCRIPTION DRUG MONITORING PROGRAM REVIEWED*: Not Applicable *COPY OF PRESCRIPTION DRUG MONITORING REPORT IN PATIENT ALYSSA: Not Applicable Instructions: Fever, Adult Referrals: Idalia Cuellar MD [Primary Care Provider] - Romel Aleman NP [Nurse Practitioner] - Forms: ED Department Discharge Additional Instructions: Your laboratory analysis and chest x-ray performed today are all in good standing, normal limits. The COVID-19 test/swab that was obtained today will result in the next 3 to 4 days. You need to remain in isolation limiting your contacts until your test results return. 14-day quarantine. From the time of symptoms and testing has been re commended for symptomatic people. Make sure you maintain good hydration and eat healthy. Continue to take your medications as prescribed. Call your clinic or return to the emergency department if symptoms should worsen. Sepsis Event Note (ED) - Evaluation Sepsis Screening Result: No Definite Risk - Focused Exam Vital Signs: Vital Signs Temp Pulse Resp BP Pulse Ox 02/09/20 08:06 37.9 C 68 18 148/76 H 96 - Problem List & Annotations (1) History of fever SNOMED Code(s): 169739136 Code(s): Z87.898 - PERSONAL HISTORY OF OTHER SPECIFIED CONDITIONS Status: Acute Priority: High Current Visit: Yes (2) History of asthma SNOMED Code(s): 862577494 Code(s): Z87.09 - PERSONAL HISTORY OF OTHER DISEASES OF THE RESPIRATORY SYSTEM Status: Acute Priority: High Current Visit: Yes (3) Fever SNOMED Code(s): 036845373 Code(s): R50.9 - FEVER, UNSPECIFIED Status: Acute Priority: High Current Visit: Yes Qualifiers: Fever type: unspecified Qualified Code(s): R50.9 - Fever, unspecified - Problem List Review Problem List Initiated/Reviewed/Updated: Yes - Assessment/Plan Plan: Your laboratory analysis and chest x-ray performed today are all in good standing, normal limits. The COVID-19 test/swab that was obtained today will result in the next 3 to 4 days. You need to remain in isolation limiting your contacts until your test results return. 14-day quarantine. From the time of symptoms and testing has been recommended for symptomatic people. Make sure you maintain good hydration and eat healthy. Continue to take your medications as prescribed. Call your clinic or return to the emergency department if symptoms should worsen.
[2020-02-09 09:04] LABS: ANION GAP 12.5 mmol/L (5-15); CHLORIDE,CL 104 mmol/L (98-115); SODIUM,NA 141 mmol/L (136-145)
--- NOTE | 2020-02-09 09:21 | CR ---
[id number] RAD/RAD Chest PA or AP 1V EXAM: FRONTAL CHEST INDICATION: SHORTNESS OF BREATH/COUGH. COMPARISON: May 18, 2019. DISCUSSION: Bibasilar infiltrates present on the previous examination have resolved. No residual or recurrent infiltrates are identified. Cardiac monitoring device overlying the left mid chest. Normal heart size. No effusions. IMPRESSION: 1. Interval resolution of infiltrates. No acute findings. Len Sanz MD 02/09/20 0920 Thank you for allowing us to participate in the care of your patient.
== END 2020-02-09 10:10 | disposition home or self-care (01) ==
LOC: KA.ED 07:59
DX: R50.9 Fever, unspecified (principal); E78.00 Pure hypercholesterolemia, unspecified; I10 Essential (primary) hypertension; J44.9 Chronic obstructive pulmonary disease, unspecified; M19.90 Unspecified osteoarthritis, unspecified site; Z86.73 Personal history of transient ischemic attack (TIA), and cerebral infarction without residual deficits; Z79.82 Long term (current) use of aspirin; Z79.899 Other long term (current) drug therapy
CPT/HCPCS: 36415; 71045; 80053; 83605; 85025; 99283-25; 99284; U0002

== ENCOUNTER 2021-11-20 21:52 | Emergency (ER) | payer BC, MEDICAID, SELFPAY ==
[2021-11-20] MEDS ORDERED: Ketorolac 60 MG/2 ML SDV IM ONE (22:10)
[2021-11-21 00:22] VITALS: BP 142/60; PULSE 68
== END 2021-11-20 22:55 | disposition home or self-care (01) ==
LOC: KA.ED 21:52
DX: R51.9 Headache, unspecified (principal); J44.9 Chronic obstructive pulmonary disease, unspecified; I10 Essential (primary) hypertension; Z79.899 Other long term (current) drug therapy; Z79.82 Long term (current) use of aspirin; Z86.73 Personal history of transient ischemic attack (TIA), and cerebral infarction without residual deficits; Z90.49 Acquired absence of other specified parts of digestive tract
CPT/HCPCS: 96372; 99283; J1885

== ENCOUNTER 2022-01-15 20:55 | Emergency (ER) | payer MEDICAID ==
[2022-01-15 21:59] VITALS: BP 128/80; PULSE 80
== END 2022-01-15 21:17 | disposition home or self-care (01) ==
LOC: KA.ED 20:55
DX: S60.450A Superficial foreign body of right index finger, initial encounter (principal); I10 Essential (primary) hypertension; Z87.891 Personal history of nicotine dependence; Z90.49 Acquired absence of other specified parts of digestive tract; Z79.899 Other long term (current) drug therapy; Z79.82 Long term (current) use of aspirin; W26.8XXA Contact with other sharp object(s), not elsewhere classified, initial encounter
CPT/HCPCS: 99283

== ENCOUNTER 2022-03-24 12:11 | Emergency (ER) | payer MEDICAID ==
[2022-03-24 12:23] VITALS: BP 136/73; PULSE 97
[2022-03-24] MEDS ORDERED: Silver Sulfadiazine 1% Crm 25 GM Tube TOP ONE (13:10)
== END 2022-03-24 13:15 | disposition home or self-care (01) ==
LOC: KA.ED 12:11
DX: T24.232A Burn of second degree of left lower leg, initial encounter (principal); E78.00 Pure hypercholesterolemia, unspecified; I10 Essential (primary) hypertension; J44.9 Chronic obstructive pulmonary disease, unspecified; M19.90 Unspecified osteoarthritis, unspecified site; Z87.891 Personal history of nicotine dependence; Z79.82 Long term (current) use of aspirin; Z79.899 Other long term (current) drug therapy; X02.0XXA Exposure to flames in controlled fire in building or structure, initial encounter
CPT/HCPCS: 99283

== ENCOUNTER 2023-06-15 19:15 | Emergency (ER) | payer BC, MEDICAID, OTHER ==
[2023-06-15 20:12] LABS: INFLUENZA A NAA NEGATIVE (NEGATIVE); INFLUENZA B NAA NEGATIVE (NEGATIVE); RESPIRATORY SYNCYTIAL VIR NAA NEGATIVE (NEGATIVE)
[2023-06-15 20:15] LABS: CORONAVIRUS COVID-19 NAA NEGATIVE (NEGATIVE)
[2023-06-15] MEDS: Cefdinir 300 MG Cap PO ONE (21:22)
[2023-06-16 01:26] VITALS: PULSE 86
[2023-06-16 01:43] VITALS: BP 156/79
== END 2023-06-15 21:28 | disposition home or self-care (01) ==
LOC: KA.ED 19:15 → SUPCPDRO 19:15 → KA.ED 21:28
DX: J18.9 Pneumonia, unspecified organism (principal); I10 Essential (primary) hypertension; J44.9 Chronic obstructive pulmonary disease, unspecified; Z86.73 Personal history of transient ischemic attack (TIA), and cerebral infarction without residual deficits; Z79.82 Long term (current) use of aspirin; Z79.51 Long term (current) use of inhaled steroids; Z79.899 Other long term (current) drug therapy
CPT/HCPCS: 0241U; 71045; 99283; A9270; Q3014; 99284

== ENCOUNTER 2023-07-29 08:01 | Emergency (ER) | payer MEDICAID ==
[2023-07-29] MEDS: Albuterol/Ipratropium 3.0-0.5 MG/3 ML Neb Soln NEB ONE (08:20)
[2023-07-29 08:32] VITALS: BP 153/68
[2023-07-29] MEDS: predniSONE 10 MG Tab ONE (08:38)
[2023-07-29] MEDS: Albuterol 0.083% 2.5 MG/3 ML Neb Soln NEB ONE (08:38)
[2023-07-29] MEDS: Albuterol 0.083% 2.5 MG/3 ML Neb Soln ONE (08:38)
[2023-07-29] MEDS: predniSONE 10 MG Tab PO ONE (08:39)
[2023-07-29 09:32] VITALS: PULSE 95
== END 2023-07-29 09:25 | disposition home or self-care (01) ==
LOC: KA.ED 08:01
DX: J45.41 Moderate persistent asthma with (acute) exacerbation (principal); I10 Essential (primary) hypertension; J44.9 Chronic obstructive pulmonary disease, unspecified; Z79.51 Long term (current) use of inhaled steroids; Z79.82 Long term (current) use of aspirin; Z79.899 Other long term (current) drug therapy; Z86.73 Personal history of transient ischemic attack (TIA), and cerebral infarction without residual deficits
CPT/HCPCS: 94640; 99284; J7512; J7613-GY; J7620-GY

== ENCOUNTER 2023-09-11 10:29 | Day surgery (SDC) | payer MEDICAID ==
[2023-09-11] MEDS ORDERED: Midazolam 1 MG/ML 2 ML SDV ONE (10:51)
[2023-09-11] MEDS ORDERED: fentaNYL 100 MCG/2 ML SDV ONE (10:51)
[2023-09-11] MEDS ORDERED: Propofol 200 MG/20 ML SDV ONE (10:52)
[2023-09-11] MEDS ORDERED: Sodium Chloride 0.9% 10 ML Syringe FLUSH PRN (11:00)
[2023-09-11] MEDS: Lactated Ringers 1,000 ML IV SCH (11:02)
[2023-09-11] MEDS ORDERED: Bacitracin/Neomycin/Polymyxin B Oint 0.9 GM U/D Packet ONE (11:35)
[2023-09-11] MEDS ORDERED: Bupivacaine 0.25%/EPINEPHrine 1:200,000 30 ML SDV ONE (11:35)
[2023-09-11] MEDS: Bupivacaine 0.25%/EPINEPHrine 1:200,000 30 ML SDV INFILT ONE (11:50)
[2023-09-11] MEDS: Bacitracin/Neomycin/Polymyxin B Oint 0.9 GM U/D Packet TOP ONE (11:50)
[2023-09-11 14:18] VITALS: BP 137/72; PULSE 60
== END 2023-09-11 13:42 | disposition home or self-care (01) ==
LOC: KA.SDS 10:29
PROVIDERS: ATTEND Surgery
DX: R19.09 Other intra-abdominal and pelvic swelling, mass and lump (principal); I10 Essential (primary) hypertension; J44.9 Chronic obstructive pulmonary disease, unspecified; E66.01 Morbid (severe) obesity due to excess calories; Z79.82 Long term (current) use of aspirin; Z79.899 Other long term (current) drug therapy
CPT/HCPCS: 00800; J2250; J2704; J3010; J3490; J7120

== ENCOUNTER 2023-09-15 07:30 | Emergency (ER) | payer MEDICAID ==
[2023-09-15] MEDS: Albuterol 0.083% 2.5 MG/3 ML Neb Soln NEB ONE (08:27)
[2023-09-15 09:04] VITALS: BP 151/86; PULSE 68
== END 2023-09-15 09:01 | disposition home or self-care (01) ==
LOC: KA.ED 07:30
DX: J45.21 Mild intermittent asthma with (acute) exacerbation (principal); I10 Essential (primary) hypertension; Z90.49 Acquired absence of other specified parts of digestive tract; Z87.891 Personal history of nicotine dependence; Z79.899 Other long term (current) drug therapy; Z79.82 Long term (current) use of aspirin
CPT/HCPCS: 94640; 99284; J7613-GY

== ENCOUNTER 2023-10-27 12:40 | Emergency (ER) | payer MEDICAID ==
[2023-10-27 13:01] VITALS: BP 103/76; PULSE 62
[2023-10-27] MEDS: Ketorolac 30 MG/ML SDV IM ONE (13:06)
== END 2023-10-27 13:13 | disposition home or self-care (01) ==
LOC: KA.ED 12:40
DX: R51.9 Headache, unspecified (principal); I10 Essential (primary) hypertension; Z79.82 Long term (current) use of aspirin; Z79.899 Other long term (current) drug therapy; Z90.49 Acquired absence of other specified parts of digestive tract
CPT/HCPCS: 96372; 99283; 99284; J1885

== ENCOUNTER 2025-01-03 04:08 | Emergency (ER) | payer MEDICARE, MEDICAID ==
[2025-01-03 06:14] VITALS: BP 116/66; PULSE 71
== END 2025-01-03 05:24 | disposition home or self-care (01) ==
LOC: KA.ED 04:08
DX: M25.512 Pain in left shoulder (principal); I10 Essential (primary) hypertension; J44.9 Chronic obstructive pulmonary disease, unspecified; Z86.73 Personal history of transient ischemic attack (TIA), and cerebral infarction without residual deficits; Z90.49 Acquired absence of other specified parts of digestive tract; Z79.82 Long term (current) use of aspirin; Z79.899 Other long term (current) drug therapy; Z87.828 Personal history of other (healed) physical injury and trauma
CPT/HCPCS: 73030-LT; 99283; A9270-GY